=== PATIENT | male | born 1965 | race Caucasian/White ===

== ENCOUNTER 2016-07-21 13:37 | Inpatient (IN) | payer OTHER ==
[2016-07-21] MEDS ORDERED: FOLIC ACID INJ 1 MG, THIAMINE INJ 100 MG, MAGNESIUM SULFATE 2 GM, MULTIVITAMIN 10 ML in... IV STA ×5 (14:48)
[2016-07-21] MEDS ORDERED: LORazepam 2 MG/ML SYRINGE IVP STA (14:59)
[2016-07-21] MEDS ORDERED: LORazepam 2 MG/ML SYRINGE IM STA (15:14)
[2016-07-21] MEDS ORDERED: ONDANSETRON ODT 4 MG TABLET TL STA (15:14)
--- NOTE | 2016-07-21 15:18 | ED Physician Documentation ---
History of Present Illness - Stated complaint Stated Complaint: FEELING FAINT - Chief complaint Chief Complaint: General - Additonal information Additional information: hx from pt 51 male heavy drinker - a fifth vodka per day last drink 07/16 to ER with withdrawal - shakes, feels faint, nauseated no seizure no hallucination 2 prior EtOH withdrawal able to be managed as an outpt with oral meds has not been able to eat or drink - feels he is dehydrated Review of Systems Constitutional: denies: Fever Cardiac: denies: Chest pain / pressure, Palpitations Respiratory: denies: Dyspnea, Cough GI: reports: Nausea. denies: Abdominal Pain Neurologic: reports: Generalized weakness, Near syncope Endocrine: denies: Easy bruising / bleeding Immunocompromised: denies: Immunocompromised PD PAST MEDICAL HISTORY - Past Medical History Past Medical History: Yes Cardiovascular: Hypertension Psych: Post traumatic stress disorder Other Past Medical History: neuropathy - Past Surgical History Past Surgical History: Yes - Present Medications Home Medications: Ambulatory Orders Medication Instructions Recorded Confirmed Gabapentin 300 mg PO TID 07/21/16 07/21/16 Lisinopril 10 mg PO DAILY 07/21/16 07/21/16 Ondansetron Odt [Zofran] 4 mg TL Q6H PRN #10 tablet 07/21/16 QUEtiapine [SEROquel] 200 mg PO DAILY 07/21/16 07/21/16 Sertraline [Zoloft] 200 mg PO DAILY 07/21/16 07/21/16 chlordiazePOXIDE [Librium] 25 mg PO DAILY PRN #9 capsule 07/21/16 - Allergies Allergies/Adverse Reactions: Allergies Allergy/AdvReac Type Severity Reaction Status Date / Time No Known Drug Allergies Allergy Verified 07/21/16 13:49 - Social History Does the pt smoke?: No Smoking Status: Never smoker Does the pt drink ETOH?: Yes ETOH Use: Liquor Does the pt have substance abuse?: Yes Substance Use and Type: Marijuana PD ED PE NORMAL - Vitals Vital signs reviewed: Yes - General General: Alert and oriented X 3 - HEENT HEENT: PERRL - Cardiac Cardiac: RRR - Respiratory Respiratory: No respiratory distress - Abdomen Abdomen: Soft, Non tender - Derm Derm: Normal color - Neuro Neuro: Alert and oriented X 3 Results - Vitals Vitals: Vital Signs - 24 hr 07/21/16 07/21/16 07/21/16 13:47 14:42 17:03 Temperature 35.5 C L Heart Rate 71 96 82 Respiratory 24 18 18 Rate Blood Pressure 101/70 128/78 128/86 H O2 Saturation 97 96 97 Oxygen O2 Source Room air - EKG (time done) 1526 Rate: Rate (enter#) (102) Rhythm: Sinus tachycardia, Other (severe aritcat from tremors but appears sinus tach) Intervals: Other (ST segment elev concave up with J point nothcing c/w repol, tall wide T waves diffusely, no TWI no Q waves) - Labs Labs: Laboratory Tests 07/21/16 07/21/16 07/21/16 16:10 16:10 16:10 WBC 17.8 H RBC 4.95 Hgb 16.4 Hct 46.8 MCV 94.5 H MCH 33.2 H MCHC 35.1 RDW 14.0 Plt Count 250 MPV 8.1 Neut # 14.6 H Lymph # 0.6 L [place] # 2.5 H Eos # 0.0 Baso # 0.0 Absolute Nucleated RBC 0.00 Nucleated RBCs 0.0 Manual Slide Review Indicated WBC Morphology NORMAL APPEARANCE Platelet Estimate NORMAL (130-450,000) Platelet Morphology NORMAL APPEARANCE RBC Morph Micro Appear 1+ ANISOCYTOSIS PT INR Sodium 127 L Potassium 2.1 L* Chloride 64 L* Carbon Dioxide 30 Anion Gap 33.0 H BUN 68 H Creatinine 2.8 H Estimated GFR (MDRD) 24 L Glucose 142 H Glycated Hemoglobin Estim Average Glucose Calcium 9.1 Phosphorus Magnesium Total Bilirubin 2.4 H AST 39 ALT 22 Alkaline Phosphatase 84 Troponin I 0.09 Total Protein 9.4 H Albumin 4.7 Globulin 4.7 H Albumin/Globulin Ratio 1.0 Lipase 39 Vitamin B12 TSH Free T4 Ethyl Alcohol < 5.0 07/21/16 07/21/16 07/21/16 16:10 16:10 16:10 WBC RBC Hgb Hct MCV MCH MCHC RDW Plt Count MPV Neut # Lymph # [place] # Eos # Baso # Absolute Nucleated RBC Nucleated RBCs Manual Slide Review WBC Morphology Platelet Estimate Platelet Morphology RBC Morph Micro Appear PT 12.5 INR 1.1 Sodium Potassium Chloride Carbon Dioxide Anion Gap BUN Creatinine Estimated GFR (MDRD) Glucose Glycated Hemoglobin 4.9 Estim Average Glucose 94 Calcium Phosphorus 3.4 Magnesium 2.3 Total Bilirubin AST ALT Alkaline Phosphatase Troponin I Total Protein Albumin Globulin Albumin/Globulin Ratio Lipase Vitamin B12 TSH Free T4 Ethyl Alcohol 07/21/16 16:10 WBC RBC Hgb Hct MCV MCH MCHC RDW Plt Count MPV Neut # Lymph # [place] # Eos # Baso # Absolute Nucleated RBC Nucleated RBCs Manual Slide Review WBC Morphology Platelet Estimate Platelet Morphology RBC Morph Micro Appear PT INR Sodium Potassium Chloride Carbon Dioxide Anion Gap BUN Creatinine Estimated GFR (MDRD) Glucose Glycated Hemoglobin Estim Average Glucose Calcium Phosphorus Magnesium Total Bilirubin AST ALT Alkaline Phosphatase Troponin I Total Protein Albumin Globulin Albumin/Globulin Ratio Lipase Vitamin B12 341 TSH 0.99 Free T4 1.91 H Ethyl Alcohol PD MEDICAL DECISION MAKING - ED course ED course: EtOH withdrawal not DTs or seizures but also profoundly dehydrated with abn lytes will need admit bili noted - pt has no abd pain - doubt acute miguel - would recheck with AM labs though - if not improving consider [facility] - [facility] is after 6PM and care management not answering phone - but I spoke to the pt and he advises me that he has Service Members Choice and does not need to have permission from [facility] to be [facility] to other [facility] - [facility] and spoke with Supervisor Painting of the Day named Keanu who advises that the [facility] has no [facility] at this times , but also states he does not have the authority to authorize the pt to be admitted to [facility], so I asked who would have that authority and am advised by Keanu that there is no one available [facility] with the authority to approve the pt to be admitted here - but that pt can not be transferred to the [facility] today either because there are no med surg beds - so will admit to [facility] for tonight because the pt needs medical care - cuca Colby aware and present to assist with the above discussions and he called and spoke to Keanu too with the same results Departure - Departure Disposition: 66 [facility] DC/Xfer Clinical Impression: Dehydration, Acute renal insufficiency, Hypokalemia Alcohol withdrawal Qualifiers: Complication of substance-induced condition: uncomplicated Qualified Code(s): F10.230 - Alcohol dependence with withdrawal, uncomplicated Condition: Good
[2016-07-21] MEDS ORDERED: LORazepam 2 MG/ML SYRINGE ONE (15:39)
[2016-07-21] MEDS ORDERED: ONDANSETRON ODT 4 MG TABLET ONE (15:40)
[2016-07-21 16:13] LABS: BASOPHILS % (AUTO) 0.2 %; EOSINOPHILS % (AUTO) 0.1 %; HCT - HEMATOCRIT 46.8 % (42.0-52.0); HGB - HEMOGLOBIN 16.4 g/dL (14.0-18.0); LYMPHOCYTES # (AUTO) 0.6 10^3/uL (1.5-3.5); LYMPHOCYTES % (AUTO) 3.3 %; MEAN CORPUSCULAR HEMOGLOBIN 33.2 pg (27.0-31.0); MEAN CORPUSCULAR HGB CONC 35.1 g/dL (32.0-36.0); MEAN CORPUSCULAR VOLUME 94.5 fL (80.0-94.0); MEAN PLATELET VOLUME 8.1 fL (7.4-11.4); MONOCYTES # (AUTO) 2.5 10^3/uL (0.0-1.0); MONOCYTES % (AUTO) 14.3 %; NEUTROPHILS # (AUTO) 14.6 10^3/uL (1.5-6.6); NEUTROPHILS % (AUTO) 82.1 %; RED BLOOD COUNT 4.95 10^6/uL (4.70-6.10); UNCORRECTED WHITE BLOOD COUNT 17.8 x10^3/uL; WHITE BLOOD COUNT 17.8 x10^3/uL (4.8-10.8)
[2016-07-21 16:31] LABS: BILIRUBIN,TOTAL 2.4 mg/dL (0.2-1.0); BUN - BLOOD UREA NITROGEN 68 mg/dL (6-20); CALCIUM 9.1 mg/dL (8.5-10.3); CARBON DIOXIDE - CO2 30 mmol/L (21-32); CREATININE 2.8 mg/dL (0.6-1.2); GFR - MDRD 24 (>89); GLUCOSE 142 mg/dL (70-100); LIPASE 39 U/L (22-51); SODIUM 127 mmol/L (135-145); TOTAL PROTEIN 9.4 g/dL (6.7-8.2)
[2016-07-21 16:32] LABS: CHLORIDE 64 mmol/L (101-111); POTASSIUM 2.1 mmol/L (3.5-5.0)
[2016-07-21 16:56] LABS: PLATELET ESTIMATE, MANUAL NORMAL (130-450,000) (NORMAL); PLATELET MORPHOLOGY NORMAL APPEARANCE (NORMAL)
[2016-07-21 16:57] LABS: WBC MORPHOLOGY (MULTIPLE) NORMAL APPEARANCE (NORMAL)
[2016-07-21] MEDS ORDERED: SODIUM CHLORIDE 0.9% 2,000 ML IV ONE (17:17)
[2016-07-21] MEDS ORDERED: POTASSIUM CHLORIDE 20 MEQ TABLET PO STA ×2 (17:17→22:21)
[2016-07-21] MEDS ORDERED: POTASSIUM CHLOR 10 MEQ/100 ML 100 ML IV ONE ×2 (17:17→17:40)
[2016-07-21] MEDS ORDERED: POTASSIUM CHLORIDE 20 MEQ TABLET PO ONE (17:41)
[2016-07-21] MEDS ORDERED: LORazepam 2 MG/ML SYRINGE IVP PRN (18:04)
[2016-07-21 18:27] LABS: MAGNESIUM 2.3 mg/dL (1.7-2.8); PHOSPHORUS 3.4 mg/dL (2.5-4.6)
[2016-07-21 18:31] LABS: INR 1.1 (0.8-1.2); PT - PROTHROMBIN TIME 12.5 secs (9.9-12.6)
[2016-07-21 18:35] LABS: HEMOGLOBIN A1C 0.54 g/dL
[2016-07-21] MEDS ORDERED: POTASSIUM CHLOR 20 MEQ/100 ML 100 ML IV SCH (19:00)
[2016-07-21 19:03] LABS: THYROID STIMULATING HORMONE 0.99 uIU/mL (0.34-5.60)
--- NOTE | 2016-07-21 19:21 | HISTORY & PHYSICAL EXAMINATION ---
DATE OF ADMISSION: 07/21/2016 PRIMARY CARE PROVIDER: LOWELL. CHIEF COMPLAINT: Alcohol withdrawal. ADMITTING PROVIDER: Katya Gutierrez APRN. HISTORY OF PRESENT ILLNESS: The patient is a 51-year-old thin male who presented to the ED tonight with a complaint of feeling faint and history of alcoholism who has not had a drink in approximately 4 days. The patient states that he has been a heavy drinker with a fifth of vodka per day for many years. He was on his way today for an appointment for applying for disability with the due to his posttraumatic stress disorder. Prior to going to this appointment he started to feel weak and sick to his stomach. After the appointment and talking with them he started to feel worse. He stated that he became faint and lightheaded. He was unable to eat, drink or keep anything down. He started shaking and started vomiting. He denied having a seizure or hallucinations. He decided to come to the ER for further evaluation of his symptoms. He states that he has had 2 prior alcohol withdrawal sessions, and he was able to be managed as an outpatient with oral medication; however, today after 4 days with no alcohol and feeling so sick, he felt he needed to come to the ER for further intervention. The patient denies fever, chest pain, palpitations, dyspnea, cough, abdominal pain, bruising, bleeding. He admits to lightheadedness, weakness, near syncope, nausea and vomiting. He also stated that he does use marijuana and smoked his last marijuana cigarette approximately a week ago. He denies using cigarettes. The patient was evaluated at bedside in the ER. He appears calm and relaxed, very cool to touch, very pleasant and requesting to be managed for alcohol withdrawal and needing treatment. He agrees to be admitted for further evaluation. While in the ER, he was found to have a potassium level of 2.1, sodium 127, magnesium is pending at this time. White blood cell count of 17.8, probably related to the withdrawal and chloride of 64. He was given aggressive fluid hydration while in the ER by the ER provider. He also received a banana bag. He will be admitted for further evaluation and hydrated and electrolytes replaced. The patient denies having DTs or seizures; however, will be placed on a seizure protocol. ALLERGIES: NO KNOWN DRUG ALLERGIES. HOME MEDICATIONS: 1. Gabapentin. 2. Lisinopril. 3. Seroquel. 4. Zoloft. 5. Librium. 6. Zofran. PAST MEDICAL HISTORY: Includes hypertension, pacemaker placement and posttraumatic stress disorder and neuropathy. PAST SURGICAL HISTORY: Pacemaker placement. FAMILY HISTORY: The patient states both his parents are alive. Father was a drinker as well and also an cash applications analyst. Mother has no medical problems. SOCIAL HISTORY: The patient uses marijuana, smokes fifth of vodka per day, denies cigarette usage. He is on disability from the and is not . REVIEW OF SYSTEMS: Ten systems have been reviewed and are negative with exception as discussed in the HPI prior. he admits to lethargy, nausea, tremors , and denies chest pain, shortness of breath, hematuria and dysuria PHYSICAL EXAMINATION: CONSTITUTIONAL: The patient is alert, no acute distress. EYES: Pupils are equal, round and reactive to light and accommodation. Conjunctivae and sclerae was nonicteric, not injected. ENT: Nares are patent. No nasal discharge. Oropharynx: No masses, exudates or lesions. Mucous membranes were moist. NECK: Supple. No thyromegaly. RESPIRATORY: Breath sounds are clear and equal bilaterally to auscultation. No retractions, nasal flaring, or increased work of breathing. CARDIOVASCULAR: Regular rate and rhythm. S1, S2 noted. No gallops, murmurs or rubs. ABDOMEN: Soft, nontender. Bowel sounds active. No guarding or rebound. No hepatosplenomegaly. SKIN: His skin was cool, dry, intact. No cellulitis or lesions noted. NEUROLOGIC: The patient was alert, GCS 15. Cranial nerves 2-12 grossly intact. Sensory is intact. HEMATOLOGIC: No active bleeding. The patient is hemodynamically stable. LYMPHATICS: No cervical, axillary, supraclavicular lymphadenopathy was noted. GENITOURINARY: No CVA tenderness. No mass palpated. No bladder distention. PSYCHIATRIC: Flat affect, pleasant mood and cooperative. No suicidal ideation. MUSCULOSKELETAL: Extremities: No cyanosis. Pulses are palpable. The patient has full range of motion with upper and lower extremities. Motor is 5/5 bilaterally. VITAL SIGNS: Temperature 35.5, heart rate 71, respirations 18, blood pressure 128/78, pulse oximetry 96% on room air. LABORATORY AND DIAGNOSTICS: I personally reviewed the laboratory and diagnostic data for the medical records for 07/21/2016 results are as follows: 1. EKG shows sinus tachycardia with no T-wave inversion. 2. Chest x-ray pending. LABORATORY DATA: I personally reviewed laboratory data from 07/21/2016 results are as follows: WBC is 17.8, MCV is 94.5, neutrophil percentage 14.6. Sodium 127 , potassium 2.1, chloride 64, carbon dioxide 30, anion gap 33, BUN 68, creatinine 2.8, GFR is 24, glucose 142, total bilirubin 2.4, troponin 0.09, total protein 9.4. Globulin is 4.7, lipase 39. Ethyl alcohol less than 5. ASSESSMENT AND PLAN: 1. Acute alcohol withdrawal with dependence secondary to acute electrolyte imbalances including hypokalemia and hyponatremia. PLAN: Admit the patient to inpatient, replace electrolytes, potassium and sodium and chloride The patient's potassium was 2.1, sodium was 127, chloride was 64. Check magnesium and phosphorus and replace levels. Banana bag IV with normal saline IV hydration. B12 checked. Iron panel checked. We will request amylase and lipase, as well. The patient will need cardiac enzymes trended, however, is not having chest pain at this time, but does have significant low hypokalemia which could result in changes in the EKG and cardiac problems. Continue on CIWA protocol with Ativan and continue home medication of Librium. Social work consult for smoking cessation and outpatient treatment since the patient is requesting help and assist for alcohol withdrawal. 2. Acute on chronic substance abuse, cannabinoids, uncomplicated with acute withdrawal. PLAN: The patient does take gabapentin. Will continue for withdrawal from marijuana. Will provide counseling and education for cessation. Continue on CIWA protocol, as well. Continue to monitor electrolytes. 3. Hypertensive heart disease with chronic substance abuse, marijuana and alcohol abuse with dependence. PLAN: Continue the patient on telemetry monitoring. Will hold lisinopril home medication. Will trend cardiac markers. 4. Acute on chronic generalized anxiety disorder with depression, unspecified. PLAN: Continue the patient on Zoloft and Seroquel. Continue to monitor mental health status and the patient will need social work consult for evaluation for workup for outpatient treatment for alcohol abuse. 5. Posttraumatic stress disorder, chronic with history of involvement in and war. PLAN: Continue to provide social support and outpatient treatment for posttraumatic stress disorder. Continue the patient on Seroquel and Zoloft. 6. DVT prophylaxis with SCDs. Will hold anticoagulation due to liver function testing and potential for bleeding. 7. STATUS: THE PATIENT IS A FULL CODE STATUS. Time spent with patient was 40 minutes for planning and assessment. RISK ASSESSMENT/DISPOSITION: The patient is in full inpatient admission since he will need additional diagnostics and IV medications with high risk for toxicity. Code status was addressed at bedside. plan for at least 2 midnight stay JOB #: [id number] EXT JOB #[facility][id number] [facility]
[2016-07-21] MEDS: ONDANSETRON 4 MG/2 ML VIAL IVP SCH (20:14)
[2016-07-21] MEDS: POTASSIUM CHLOR 10 MEQ/100 ML 100 ML IV SCH ×2 (20:49→22:04)
[2016-07-21] MEDS ORDERED: SODIUM CHLORIDE 0.9% 2,000 ML IV SCH (21:00)
[2016-07-21] MEDS: GABAPENTIN 300 MG CAPSULE PO SCH (22:16)
[2016-07-22] MEDS: LORazepam 0.5 MG TABLET PO PRN ×2 (00:20→07:57)
[2016-07-22] MEDS: POTASSIUM CHLOR 10 MEQ/100 ML 100 ML IV SCH ×9 (02:28→10:14)
[2016-07-22] MEDS: NS W/20 MEQ KCL 1,000 ML IV SCH ×4 (02:28→20:11)
[2016-07-22] MEDS: ONDANSETRON 4 MG/2 ML VIAL IVP SCH ×4 (02:29→17:05)
[2016-07-22] MEDS: GABAPENTIN 300 MG CAPSULE PO SCH ×3 (06:06→21:35)
[2016-07-22 06:25] LABS: BASOPHILS % (AUTO) 0.4 %; EOSINOPHILS % (AUTO) 0.1 %; HCT - HEMATOCRIT 39.3 % (42.0-52.0); HGB - HEMOGLOBIN 13.9 g/dL (14.0-18.0); LYMPHOCYTES # (AUTO) 0.8 10^3/uL (1.5-3.5); LYMPHOCYTES % (AUTO) 7.3 %; MEAN CORPUSCULAR HEMOGLOBIN 33.7 pg (27.0-31.0); MEAN CORPUSCULAR HGB CONC 35.5 g/dL (32.0-36.0); MEAN PLATELET VOLUME 7.4 fL (7.4-11.4); MONOCYTES # (AUTO) 1.5 10^3/uL (0.0-1.0); MONOCYTES % (AUTO) 14.2 %; NEUTROPHILS # (AUTO) 8.3 10^3/uL (1.5-6.6); RED BLOOD COUNT 4.13 10^6/uL (4.70-6.10); UNCORRECTED WHITE BLOOD COUNT 10.6 x10^3/uL; WHITE BLOOD COUNT 10.6 x10^3/uL (4.8-10.8)
[2016-07-22 06:51] LABS: ALBUMIN/GLOBULIN RATIO 1.1 (1.0-2.2); BILIRUBIN,DIRECT 0.4 mg/dL (0.1-0.5); BILIRUBIN,TOTAL 1.8 mg/dL (0.2-1.0); CALCIUM 7.8 mg/dL (8.5-10.3); CREATININE 1.6 mg/dL (0.6-1.2); MAGNESIUM 2.9 mg/dL (1.7-2.8); PHOSPHORUS 3.6 mg/dL (2.5-4.6)
[2016-07-22 06:52] LABS: POTASSIUM 2.4 mmol/L (3.5-5.0)
[2016-07-22] MEDS: POTASSIUM CHLORIDE 20 MEQ TABLET PO SCH ×3 (07:57→17:05)
[2016-07-22] MEDS: SERTRALINE 50 MG TABLET PO SCH (08:19)
[2016-07-22] MEDS: THIAMINE 100 MG TABLET PO SCH (08:19)
[2016-07-22] MEDS ORDERED: QUEtiapine 100 MG TABLET PO SCH ×2 (09:00→21:00)
[2016-07-22] MEDS ORDERED: MULTIVITAMIN 10 ML, THIAMINE INJ 100 MG, FOLIC ACID INJ 1 MG in SODIUM CHLORIDE 0.9% 1,... IV SCH (09:00)
[2016-07-22 09:34] LABS: BILIRUBIN,URINE NEGATIVE (NEGATIVE); UA CHARGE (STRIP ONLY) YES; UR CULTURE IF IND NOT INDICATED
--- NOTE | 2016-07-22 10:29 | PROVIDER PROGRESS NOTE ---
Assessment/Plan - Problem List (1) Electrolyte and fluid disorders not elsewhere classified Assessment/Plan: improving. continue to give IVF for gentle hydration and continue to monitor electrolytes in morning lab draw. continue with regular diet. continue to encourage potassium intake orally of home medication (2) Hypokalemia due to loss of potassium Assessment/Plan: ongoing. continue with IV K riders and oral supplement 20meq until potassium > 3.5. continue on telemetry. continue to monitor with daily labs and repeat potassium level x2 Q6. (3) Alcohol withdrawal Qualifiers: Complication of substance-induced condition: uncomplicated Qualified Code(s ): F10.230 - Alcohol dependence with withdrawal, uncomplicated Assessment/Plan: improving. continue with CIWA protocol and on ativan PRN. continue with seizure precautions. continue to provide education for cessation. social work is providing education and support. continue to monitor ammonia levels and electrolytes. continue on Librium home medication (4) Acute posttraumatic stress disorder following combat Assessment/Plan: stable. continue with zoloft. will hold seroquel since this is making patient more lethargic. social work is working with patient (5) Cannabis abuse, continuous use Assessment/Plan: stable. patient has been counseled on cessation and provided educational materials. He is on ativan and librium for withdrawal. - Current Meds Current Meds: Current Medications Generic Name Dose Route Start Last Admin Trade Name Freq PRN Reason Stop Dose Admin Gabapentin 300 mg 07/21/16 22:00 07/22/16 06:06 Neurontin PO 300 mg TID DIMITRIS Administration Potassium Chloride/Sodium Chloride 1,000 mls @ 125 mls/hr 07/21/16 20:00 05:01 Normal Saline 0.9% W/20 Meq Kcl IV Not Given .Q8H DIMITRIS Lorazepam 0.5 mg 07/21/16 18:04 07/22/16 07:57 Ativan PO 0.5 mg TID PRN Administration Anxiety Ondansetron HCl 4 mg 07/21/16 19:00 07/22/16 06:07 Zofran Inj IVP Not Given Q6HR DIMITRIS Potassium Chloride 40 meq 07/22/16 08:00 07/22/16 07:57 K-Dur PO 40 meq TIDWM DIMITRIS Administration Sertraline HCl 200 mg 07/22/16 09:00 07/22/16 08:19 Zoloft PO 200 mg DAILY DIMITRIS Administration Thiamine HCl 100 mg 07/22/16 09:00 07/22/16 08:19 Vitamin B-1 PO 100 mg DAILY DIMITRIS Administration - Lab Result Lab results reviewed: Yes Fish Bone Diagrams: 07/22/16 06:17 07/22/16 10:52 Other Lab Results: Abnormal Lab Results 07/21/16 07/21/16 07/21/16 07:45 16:10 16:10 WBC 17.8 x10^3/uL H x10^3/uL (4.8-10.8) RBC Hgb Hct MCV 94.5 fL H fL (80.0-94.0) MCH 33.2 pg H pg (27.0-31.0) Neut # 14.6 10^3/uL H 10^3/uL (1.5-6.6) Lymph # 0.6 10^3/uL L 10^3/uL (1.5-3.5) [place] # 2.5 10^3/uL H 10^3/uL (0.0-1.0) APTT Sodium 127 mmol/L L mmol/L (135-145) Potassium 2.1 mmol/L L* mmol/L (3.5-5.0) Chloride 64 mmol/L L* mmol/L (101-111) Carbon Dioxide Anion Gap 33.0 H (6-13) BUN 68 mg/dL H mg/dL (6-20) Creatinine 2.8 mg/dL H mg/dL (0.6-1.2) Estimated GFR (MDRD) 24 L (>89) Glucose 142 mg/dL H mg/dL (70-100) POC Whole Bld Glucose Calcium Magnesium Total Bilirubin 2.4 mg/dL H mg/dL (0.2-1.0) Total Protein 9.4 g/dL H g/dL (6.7-8.2) Globulin 4.7 g/dL H g/dL (2.1-4.2) Lipase Free T4 Urine Ketones 15 mg/dL H mg/dL (NEGATIVE) 07/21/16 07/22/16 07/22/16 16:10 06:17 06:17 WBC RBC 4.13 10^6/uL L 10^6/uL (4.70-6.10) Hgb 13.9 g/dL L g/dL (14.0-18.0) Hct 39.3 % L % (42.0-52.0) MCV 95.0 fL H fL (80.0-94.0) MCH 33.7 pg H pg (27.0-31.0) Neut # 8.3 10^3/uL H 10^3/uL (1.5-6.6) Lymph # 0.8 10^3/uL L 10^3/uL (1.5-3.5) [place] # 1.5 10^3/uL H 10^3/uL (0.0-1.0) APTT Sodium 128 mmol/L L mmol/L (135-145) Potassium 2.4 mmol/L L* mmol/L (3.5-5.0) Chloride 79 mmol/L L* mmol/L (101-111) Carbon Dioxide 34 mmol/L H mmol/L (21-32) Anion Gap 15.0 H (6-13) BUN 54 mg/dL H mg/dL (6-20) Creatinine 1.6 mg/dL H mg/dL (0.6-1.2) Estimated GFR (MDRD) 46 L (>89) Glucose 146 mg/dL H mg/dL (70-100) POC Whole Bld Glucose Calcium 7.8 mg/dL L mg/dL (8.5-10.3) Magnesium 2.9 mg/dL H mg/dL (1.7-2.8) Total Bilirubin 1.8 mg/dL H mg/dL (0.2-1.0) Total Protein Globulin Lipase 56 U/L H U/L (22-51) Free T4 1.91 ng/dL H ng/dL (0.58-1.64) Urine Ketones 07/22/16 07/22/16 06:17 06:17 WBC RBC Hgb Hct MCV MCH Neut # Lymph # [place] # APTT 22.8 secs L secs (24.9-33.3) Sodium Potassium Chloride Carbon Dioxide Anion Gap BUN Creatinine Estimated GFR (MDRD) Glucose POC Whole Bld Glucose 143 mg/dL H mg/dL (70 - 100) Calcium Magnesium Total Bilirubin Total Protein Globulin Lipase Free T4 Urine Ketones - EKG Results EKG Interpreted Independently: No - Additional Planning Condition/Complexity: Improved My Orders: My Active Orders 07/21/16 18:01 Blood Glucose POC [RC] ACHS CIWA - AR Score Card [RC] Routine Q2H Neuro Check [RC] Routine QSHIFT Vital Signs [RC] Q4HR Social Work [CONS] Routine 07/21/16 18:04 LORazepam INJ [Ativan Inj] 1 mg IVP Q8HR PRN LORazepam [Ativan] 0.5 mg PO TID PRN 07/21/16 18:05 UA, MICROSCOPIC & CULT IF [URIN] Routine 07/21/16 19:00 Ondansetron Inj [Zofran Inj] 4 mg IVP Q6HR 07/21/16 22:00 Gabapentin [Neurontin] 300 mg PO TID 07/22/16 09:00 Multivitamin [Infuvite] 10 ml Thiamine Inj [Vitamin B-1 Inj] 100 mg Folic Acid Inj 1 mg Sodium Chloride 0.9% [Normal Saline 0.9%] 1,000 ml IV DAILY Sertraline [Zoloft] 200 mg PO DAILY Thiamine [Vitamin B-1] 100 mg PO DAILY 07/22/16 10:25 CMP [COMPREHENSIVE METABOLIC PANEL] [CHEM] Stat 07/22/16 21:00 QUEtiapine [SEROquel] 100 mg PO QPM QUEtiapine [SEROquel] 75 mg PO QPM 07/23/16 05:00 CBC - COMP BLD CT W/AUTO DIFF [HEME] DAILYLAB CMP [COMPREHENSIVE METABOLIC PANEL] [CHEM] DAILYLAB MAGNESIUM [CHEM] DAILYLAB Consult/Specialty: OT, PT, Other (social work and case management) Plan Discussed with:: Patient, Case Management Time Spent: 31-60 minutes Additional Planning Notes: Patient will require another 24-48 hours inpatient treatment. He is high risk for worsening co morbid conditions and is requiring IV medication with high risk for toxicity and diagnostics daily. code status addressed at bedside Subjective - Subjective Patient Reports: Resting Comfortably, No Complaints (patient is sleeping and no complaints this morning. taking oral medication without difficulty, no seizure activity) Nursing Reports: No Complaints, Other (lethargic and sleeping alot. flat affect today) Objective Vital Signs: Vital Signs - 24 hr 07/21/16 07/21/16 07/21/16 19:11 19:24 23:42 Temperature 36.4 C L 36.7 C 36.4 C L Heart Rate 92 Heart Rate [ 95 90 Monitoring electrodes] Respiratory 24 16 16 Rate Blood Pressure 145/89 H Blood Pressure 149/88 H 130/78 [Right Brachial artery] O2 Saturation 97 97 98 07/22/16 07/22/16 04:20 09:00 Temperature 36.8 C 36.4 C L Heart Rate Heart Rate [ 79 96 Monitoring electrodes] Respiratory 16 22 Rate Blood Pressure Blood Pressure 126/76 122/81 H [Right Brachial artery] O2 Saturation 95 96 Oxygen O2 Source Room air I&O (Last 24 Hrs): Intake and Output Totals x24h 07/20/16 07/21/16 07/22/16 23:59 23:59 23:59 Intake Total 800 Output Total 400 Balance 400 General: Alert, Oriented x3, Cooperative, No acute distress HEENT: PERRLA Neck: Supple, No JVD, No thyromegaly Lymphatic: no adenopathy Neuro: Alert, CN 2-12 Grossly Intact, Oriented Times 3 Cardiovascular: Normal S1, Normal S2, No murmurs Respiratory: No respiratory distress, Breath sounds nml Abdomen: Normal bowel sounds, Soft, No tenderness, No masses Genitourinary: Normal Inspection Rectal: Non-Tender, Stool - Heme NEG Extremities: No clubbing, No cyanosis, No edema, No tenderness/swelling Skin: No rashes, No breakdown, No significant lesion - Results Results: Laboratory Results WBC 10.6 x10^3/uL (4.8-10.8) 07/22/16 06:17 RBC 4.13 10^6/uL (4.70-6.10) L 07/22/16 06:17 Hgb 13.9 g/dL (14.0-18.0) L 07/22/16 06:17 Hct 39.3 % (42.0-52.0) L 07/22/16 06:17 MCV 95.0 fL (80.0-94.0) H 07/22/16 06:17 MCH 33.7 pg (27.0-31.0) H 07/22/16 06:17 MCHC 35.5 g/dL (32.0-36.0) 07/22/16 06:17 RDW 14.0 % (12.0-15.0) 07/22/16 06:17 Plt Count 186 10^3/uL (130-450) 07/22/16 06:17 MPV 7.4 fL (7.4-11.4) 07/22/16 06:17 Neut # 8.3 10^3/uL (1.5-6.6) H 07/22/16 06:17 Lymph # 0.8 10^3/uL (1.5-3.5) L 07/22/16 06:17 [place] # 1.5 10^3/uL (0.0-1.0) H 07/22/16 06:17 Eos # 0.0 10^3/uL (0.0-0.7) 07/22/16 06:17 Baso # 0.0 10^3/uL (0.0-0.1) 07/22/16 06:17 Absolute Nucleated RBC 0.00 x10^3/uL 07/22/16 06:17 Nucleated RBCs 0.0 /100WBC 07/22/16 06:17 Manual Slide Review Indicated 07/21/16 16:10 WBC Morphology NORMAL APPEARANCE (NORMAL) 07/21/16 16:10 Platelet Estimate NORMAL (130-450,000) (NORMAL) 07/21/16 16:10 Platelet Morphology NORMAL APPEARANCE (NORMAL) 07/21/16 16:10 RBC Morph Micro Appear 1+ ANISOCYTOSIS (NORMAL) 07/21/16 16:10 PT 12.5 secs (9.9-12.6) 07/21/16 16:10 INR 1.1 (0.8-1.2) 07/21/16 16:10 APTT 22.8 secs (24.9-33.3) L 07/22/16 06:17 Sodium 128 mmol/L (135-145) L 07/22/16 06:17 Potassium 2.4 mmol/L (3.5-5.0) L* 07/22/16 06:17 Chloride 79 mmol/L (101-111) L* 07/22/16 06:17 Carbon Dioxide 34 mmol/L (21-32) H 07/22/16 06:17 Anion Gap 15.0 (6-13) H 07/22/16 06:17 BUN 54 mg/dL (6-20) H 07/22/16 06:17 Creatinine 1.6 mg/dL (0.6-1.2) H 07/22/16 06:17 Estimated GFR (MDRD) 46 (>89) L 07/22/16 06:17 Glucose 146 mg/dL (70-100) H 07/22/16 06:17 POC Whole Bld Glucose 143 mg/dL (70 - 100) H 07/22/16 06:17 Glycated Hemoglobin 4.9 % (4.6-6.2) 07/21/16 16:10 Estim Average Glucose 94 (70-100) 07/21/16 16:10 Calcium 7.8 mg/dL (8.5-10.3) L 07/22/16 06:17 Phosphorus 3.6 mg/dL (2.5-4.6) 07/22/16 06:17 Magnesium 2.9 mg/dL (1.7-2.8) H 07/22/16 06:17 Total Bilirubin 1.8 mg/dL (0.2-1.0) H 07/22/16 06:17 Direct Bilirubin 0.4 mg/dL (0.1-0.5) 07/22/16 06:17 AST 27 IU/L (10-42) 07/22/16 06:17 ALT 16 IU/L (10-60) 07/22/16 06:17 Alkaline Phosphatase 64 IU/L (42-121) 07/22/16 06:17 Ammonia 27.4 umol/L (7-35) 07/22/16 06:17 Troponin I 0.09 ng/mL (<0.49) 07/21/16 16:10 Total Protein 7.0 g/dL (6.7-8.2) 07/22/16 06:17 Albumin 3.7 g/dL (3.2-5.5) 07/22/16 06:17 Globulin 3.3 g/dL (2.1-4.2) 07/22/16 06:17 Albumin/Globulin Ratio 1.1 (1.0-2.2) 07/22/16 06:17 Amylase 93 U/L (28-100) 07/22/16 06:17 Lipase 56 U/L (22-51) H 07/22/16 06:17 Vitamin B12 341 pg/mL (180-914) 07/21/16 16:10 TSH 0.99 uIU/mL (0.34-5.60) 07/21/16 16:10 Free T4 1.91 ng/dL (0.58-1.64) H 07/21/16 16:10 Free T3 pg/mL 3.39 pg/mL (2.5-3.9) 07/22/16 06:17 Urine Color YELLOW 07/21/16 07:45 Urine Clarity CLEAR (CLEAR) 07/21/16 07:45 Urine pH 6.0 PH (5.0-7.5) 07/21/16 07:45 Ur Specific [place] 1.015 (1.002-1.030) 07/21/16 07:45 Urine Protein NEGATIVE mg/dL (NEGATIVE) 07/21/16 07:45 Urine Glucose (UA) NEGATIVE mg/dL (NEGATIVE) 07/21/16 07:45 Urine Ketones 15 mg/dL (NEGATIVE) H 07/21/16 07:45 Urine Occult Blood TRACE-INTA (NEGATIVE) 07/21/16 07:45 Urine Nitrite NEGATIVE (NEGATIVE) 07/21/16 07:45 Urine Bilirubin NEGATIVE (NEGATIVE) 07/21/16 07:45 Urine Urobilinogen 0.2 (NORMAL) E.U./dL (NORMAL) 07/21/16 07:45 Ur Leukocyte Esterase NEGATIVE (NEGATIVE) 07/21/16 07:45 Ur Microscopic Review NOT INDICATED 07/21/16 07:45 Urine Culture Comments NOT INDICATED 07/21/16 07:45 Ethyl Alcohol < 5.0 mg/dL 07/21/16 16:10
[2016-07-22 11:16] LABS: BILIRUBIN,TOTAL 1.7 mg/dL (0.2-1.0); CALCIUM 7.8 mg/dL (8.5-10.3); CREATININE 1.4 mg/dL (0.6-1.2); POTASSIUM 2.8 mmol/L (3.5-5.0)
[2016-07-22] MEDS: QUEtiapine 100 MG TABLET PO SCH (20:13)
[2016-07-22] MEDS ORDERED: QUEtiapine 25 MG TABLET PO SCH (21:00)
[2016-07-23] MEDS: ONDANSETRON 4 MG/2 ML VIAL IVP SCH ×2 (00:17→05:47)
[2016-07-23] MEDS: NS W/20 MEQ KCL 1,000 ML IV SCH (04:05)
[2016-07-23] MEDS: GABAPENTIN 300 MG CAPSULE PO SCH ×3 (05:47→21:19)
[2016-07-23 06:15] LABS: BASOPHILS % (AUTO) 0.6 %; EOSINOPHILS % (AUTO) 0.5 %; HCT - HEMATOCRIT 37.1 % (42.0-52.0); HGB - HEMOGLOBIN 12.3 g/dL (14.0-18.0); LYMPHOCYTES # (AUTO) 1.1 10^3/uL (1.5-3.5); LYMPHOCYTES % (AUTO) 19.9 %; MEAN CORPUSCULAR HEMOGLOBIN 32.7 pg (27.0-31.0); MEAN CORPUSCULAR HGB CONC 33.2 g/dL (32.0-36.0); MEAN CORPUSCULAR VOLUME 98.3 fL (80.0-94.0); MEAN PLATELET VOLUME 8.3 fL (7.4-11.4); MONOCYTES # (AUTO) 1.3 10^3/uL (0.0-1.0); MONOCYTES % (AUTO) 22.7 %; NEUTROPHILS # (AUTO) 3.1 10^3/uL (1.5-6.6); NEUTROPHILS % (AUTO) 56.3 %; RED BLOOD COUNT 3.78 10^6/uL (4.70-6.10); RED CELL DISTRIBUTION WIDTH 13.7 % (12.0-15.0); UNCORRECTED WHITE BLOOD COUNT 5.5 x10^3/uL; WHITE BLOOD COUNT 5.5 x10^3/uL (4.8-10.8)
[2016-07-23 06:23] LABS: BILIRUBIN,TOTAL 1.2 mg/dL (0.2-1.0); CALCIUM 8.1 mg/dL (8.5-10.3); MAGNESIUM 2.8 mg/dL (1.7-2.8); POTASSIUM 3.7 mmol/L (3.5-5.0); TOTAL PROTEIN 6.1 g/dL (6.7-8.2)
[2016-07-23] MEDS: POTASSIUM CHLORIDE 20 MEQ TABLET PO SCH (08:48)
[2016-07-23] MEDS: THIAMINE 100 MG TABLET PO SCH (08:49)
[2016-07-23] MEDS: SERTRALINE 50 MG TABLET PO SCH (08:49)
[2016-07-23] MEDS ORDERED: CYANOCOBALAMIN 1,000 MCG/ML VIAL IM SCH (10:00)
[2016-07-23] MEDS: MULTIVITAMIN TABLET PO SCH (10:04)
[2016-07-23] MEDS: LISINOPRIL 20 MG TABLET PO SCH (10:04)
--- NOTE | 2016-07-23 10:09 | Discharge Plan ---
Discharge Plan Disposition: 01 Home, Self Care Condition: Good Prescriptions: LORazepam [Ativan] 0.5 mg PO TID PRN #30 tablet PRN Reason: Anxiety Sucralfate [Carafate] 1 gm PO BID #30 ml Gabapentin 1,200 mg PO TID #60 capsule Diet: Regular Activity Restrictions: Activity as Tolerated Shower Restrictions: No Driving Restrictions: No Weight Bearing: Full Weight Instruction Topics: ED Withdrawal Alcohol, PTSD Tx Therapy, PTSD Coping Additional Instructions or Follow Up instructions: Please take all home medication as prescribed and followup with your primary care provider within the first week of discharge. You will need to see outpatient alcohol center and mental health for alcohol abuse. [facility] has a clinic in [facility]. You will need to call them for an appointment. Diet: continue with a regular diet and avoid alcohol. Drink plenty of water throughout the day and avoid alot of soda and caffeine. These can cause dehydration Avoid illegal substances including marajuana and alcohol when trying to recover from substance abuse. You have been given ativan to help with withdrawal symptoms. Take this when needed to avoid the feelings of withdrawal. Please return to the ER if symptoms reoccur or you have any chest pain, shortness of breath or thoughts of hurting yourself or others. Follow-Up Care: Dietitian (Help with diet for alcohol abuse) No Smoking: If you smoke, Please STOP! Call for help.
--- NOTE | 2016-07-23 11:01 | XRAY Report ---
TWO-VIEW NECK SOFT TISSUES: 07/23/2016 CLINICAL INDICATION: Difficulty swallowing. FINDINGS: Frontal and lateral views of the neck soft tissues demonstrate a widely patent trachea. T he hypopharyngeal structures appear unremarkable. No abnormal gas collection is seen in the soft tis sues to suggest abscess. No radiopaque foreign body is seen in the soft tissues. Incidental note is made of a left subclavian dual-chamber pacemaker. IMPRESSION: NORMAL NECK SOFT TISSUES. JOB #: [id number] EXT JOB #:[id number]
[2016-07-23] MEDS: SUCRALFATE 1 GM/10 ML UDC PO SCH ×3 (11:20→21:18)
--- NOTE | 2016-07-23 13:59 | PROVIDER PROGRESS NOTE ---
Assessment/Plan - Problem List (1) Swallowing difficulty Qualifiers: Dysphagia type: esophageal phase Qualified Code(s): R13.14 - Dysphagia, pharyngoesophageal phase Assessment/Plan: acute. probably related to the vomiting from alcohol withdrawal. will evaluate for possible Radha Ward tear since he has history of alcoholism and esophagitis. Xray of soft tissue of neck and throat. carafate oral for swallowing. (2) Electrolyte and fluid disorders not elsewhere classified Assessment/Plan: resolving. patients electrolytes have improved and remain stable. patient is on oral fluids and IVF stopped (3) Hypokalemia due to loss of potassium Assessment/Plan: resolved. continue to monitor potassium level and encourage oral intake (4) Alcohol withdrawal Qualifiers: Complication of substance-induced condition: uncomplicated Qualified Code(s ): F10.230 - Alcohol dependence with withdrawal, uncomplicated Assessment/Plan: resolving. patient is back to baseline and on ativan and librium PO for alcohol withdrawal (5) Acute posttraumatic stress disorder following combat Assessment/Plan: stable. continue on patient with zoloft and trazadone at night. (6) Cannabis abuse, continuous use Assessment/Plan: ongoing. continue to provide counseling and continue with gabapentin home dosage. - Current Meds Current Meds: Current Medications Generic Name Dose Route Start Last Admin Trade Name Freq PRN Reason Stop Dose Admin Gabapentin 300 mg 07/21/16 22:00 07/23/16 13:36 Neurontin PO 300 mg TID DIMITRIS Administration Lisinopril 10 mg 07/23/16 10:00 07/23/16 10:04 Zestril PO 10 mg DAILY DIMITRIS Administration Lorazepam 0.5 mg 07/21/16 18:04 07/22/16 07:57 Ativan PO 0.5 mg TID PRN Administration Anxiety Multivitamins 1 tab 07/23/16 10:00 07/23/16 10:04 Theragran PO 1 tab DAILYWM DIMITRIS Administration Quetiapine Fumarate 100 mg 07/22/16 21:00 07/22/16 20:13 Seroquel PO 100 mg QPM DIMITRIS Administration Sertraline HCl 200 mg 07/22/16 09:00 07/23/16 08:49 Zoloft PO 200 mg DAILY DIMITRIS Administration Sucralfate 1 gm 07/23/16 11:00 07/23/16 11:20 Carafate PO 1 gm 0700,1100,1600,2200 DIMITRIS Administration Thiamine HCl 100 mg 07/22/16 09:00 07/23/16 08:49 Vitamin B-1 PO 100 mg DAILY DIMITRIS Administration - Lab Result Lab results reviewed: Yes Fish Bone Diagrams: 07/23/16 05:48 07/23/16 05:48 Other Lab Results: Abnormal Lab Results 07/21/16 07/21/16 07/21/16 07:45 16:10 16:10 WBC 17.8 x10^3/uL H x10^3/uL (4.8-10.8) RBC Hgb Hct MCV 94.5 fL H fL (80.0-94.0) MCH 33.2 pg H pg (27.0-31.0) Neut # 14.6 10^3/uL H 10^3/uL (1.5-6.6) Lymph # 0.6 10^3/uL L 10^3/uL (1.5-3.5) [place] # 2.5 10^3/uL H 10^3/uL (0.0-1.0) APTT Sodium 127 mmol/L L mmol/L (135-145) Potassium 2.1 mmol/L L* mmol/L (3.5-5.0) Chloride 64 mmol/L L* mmol/L (101-111) Carbon Dioxide Anion Gap 33.0 H (6-13) BUN 68 mg/dL H mg/dL (6-20) Creatinine 2.8 mg/dL H mg/dL (0.6-1.2) Estimated GFR (MDRD) 24 L (>89) Glucose 142 mg/dL H mg/dL (70-100) POC Whole Bld Glucose Calcium Magnesium Total Bilirubin 2.4 mg/dL H mg/dL (0.2-1.0) Total Protein 9.4 g/dL H g/dL (6.7-8.2) Albumin Globulin 4.7 g/dL H g/dL (2.1-4.2) Lipase Free T4 Urine Ketones 15 mg/dL H mg/dL (NEGATIVE) 07/21/16 07/22/16 07/22/16 16:10 06:17 06:17 WBC RBC 4.13 10^6/uL L 10^6/uL (4.70-6.10) Hgb 13.9 g/dL L g/dL (14.0-18.0) Hct 39.3 % L % (42.0-52.0) MCV 95.0 fL H fL (80.0-94.0) MCH 33.7 pg H pg (27.0-31.0) Neut # 8.3 10^3/uL H 10^3/uL (1.5-6.6) Lymph # 0.8 10^3/uL L 10^3/uL (1.5-3.5) [place] # 1.5 10^3/uL H 10^3/uL (0.0-1.0) APTT Sodium 128 mmol/L L mmol/L (135-145) Potassium 2.4 mmol/L L* mmol/L (3.5-5.0) Chloride 79 mmol/L L* mmol/L (101-111) Carbon Dioxide 34 mmol/L H mmol/L (21-32) Anion Gap 15.0 H (6-13) BUN 54 mg/dL H mg/dL (6-20) Creatinine 1.6 mg/dL H mg/dL (0.6-1.2) Estimated GFR (MDRD) 46 L (>89) Glucose 146 mg/dL H mg/dL (70-100) POC Whole Bld Glucose Calcium 7.8 mg/dL L mg/dL (8.5-10.3) Magnesium 2.9 mg/dL H mg/dL (1.7-2.8) Total Bilirubin 1.8 mg/dL H mg/dL (0.2-1.0) Total Protein Albumin Globulin Lipase 56 U/L H U/L (22-51) Free T4 1.91 ng/dL H ng/dL (0.58-1.64) Urine Ketones 07/22/16 07/22/16 07/22/16 06:17 06:17 10:52 WBC RBC Hgb Hct MCV MCH Neut # Lymph # [place] # APTT 22.8 secs L secs (24.9-33.3) Sodium 127 mmol/L L mmol/L (135-145) Potassium 2.8 mmol/L L mmol/L (3.5-5.0) Chloride 81 mmol/L L mmol/L (101-111) Carbon Dioxide 34 mmol/L H mmol/L (21-32) Anion Gap BUN 45 mg/dL H mg/dL (6-20) Creatinine 1.4 mg/dL H mg/dL (0.6-1.2) Estimated GFR (MDRD) 53 L (>89) Glucose 115 mg/dL H mg/dL (70-100) POC Whole Bld Glucose 143 mg/dL H mg/dL (70 - 100) Calcium 7.8 mg/dL L mg/dL (8.5-10.3) Magnesium Total Bilirubin 1.7 mg/dL H mg/dL (0.2-1.0) Total Protein Albumin Globulin Lipase Free T4 Urine Ketones 07/22/16 07/22/16 07/22/16 11:32 16:27 20:57 WBC RBC Hgb Hct MCV MCH Neut # Lymph # [place] # APTT Sodium Potassium Chloride Carbon Dioxide Anion Gap BUN Creatinine Estimated GFR (MDRD) Glucose POC Whole Bld Glucose 124 mg/dL H mg/dL 103 mg/dL H mg/dL 103 mg/dL H mg/dL (70 - 100) (70 - 100) (70 - 100) Calcium Magnesium Total Bilirubin Total Protein Albumin Globulin Lipase Free T4 Urine Ketones 07/23/16 07/23/16 07/23/16 05:48 05:48 07:34 WBC RBC 3.78 10^6/uL L 10^6/uL (4.70-6.10) Hgb 12.3 g/dL L g/dL (14.0-18.0) Hct 37.1 % L % (42.0-52.0) MCV 98.3 fL H fL (80.0-94.0) MCH 32.7 pg H pg (27.0-31.0) Neut # Lymph # 1.1 10^3/uL L 10^3/uL (1.5-3.5) [place] # 1.3 10^3/uL H 10^3/uL (0.0-1.0) APTT Sodium 134 mmol/L L mmol/L (135-145) Potassium Chloride 97 mmol/L L mmol/L (101-111) Carbon Dioxide Anion Gap BUN 24 mg/dL H mg/dL (6-20) Creatinine Estimated GFR (MDRD) 79 L (>89) Glucose 123 mg/dL H mg/dL (70-100) POC Whole Bld Glucose 108 mg/dL H mg/dL (70 - 100) Calcium 8.1 mg/dL L mg/dL (8.5-10.3) Magnesium Total Bilirubin 1.2 mg/dL H mg/dL (0.2-1.0) Total Protein 6.1 g/dL L g/dL (6.7-8.2) Albumin 3.1 g/dL L g/dL (3.2-5.5) Globulin Lipase Free T4 Urine Ketones 07/23/16 10:57 WBC RBC Hgb Hct MCV MCH Neut # Lymph # [place] # APTT Sodium Potassium Chloride Carbon Dioxide Anion Gap BUN Creatinine Estimated GFR (MDRD) Glucose POC Whole Bld Glucose 106 mg/dL H mg/dL (70 - 100) Calcium Magnesium Total Bilirubin Total Protein Albumin Globulin Lipase Free T4 Urine Ketones - EKG Results EKG Interpreted Independently: No - Diagnostic Imaging Results Diagnostic Imaging Results: positive: Prelim report reviewed Diagnostic Imaging Results Comments: Xray of the neck and throat. Impression: negative for tear or varices or esophagitis - Additional Planning Condition/Complexity: Improved My Orders: My Active Orders 07/22/16 21:00 QUEtiapine [SEROquel] 100 mg PO QPM 07/23/16 10:00 Lisinopril [Zestril] 10 mg PO DAILY Multivitamin [Theragran] 1 tab PO DAILYWM 07/23/16 11:00 Sucralfate [Carafate] 1 gm PO 0700,1100,1600,2200 07/23/16 Dinner Soft Mechanical Diet [DIET] Consult/Specialty: Other (social work) Plan Discussed with:: Patient Time Spent: 31-60 minutes (Patient is requesting to stay one more night since he is having some difficulty swallowing. Xray ordered for throat and neck. plan to discharge patient in the morning.) Subjective - Subjective Patient Reports: Feeling Better, Resting Comfortably, No Complaints Nursing Reports: No Complaints, Other (flat affect. patient feels weak and requesting one more night in order to feel up to going to outpatient treatment for alcohol abuse) Objective Vital Signs: Vital Signs - 24 hr 07/22/16 07/22/16 07/23/16 16:45 21:00 00:24 Temperature 36.9 C 36.9 C 36.8 C Heart Rate [ 82 84 79 Brachial] Respiratory 20 18 18 Rate Blood Pressure 105/70 123/72 [Left Brachial artery] Blood Pressure 127/74 [Right Brachial artery] O2 Saturation 97 98 95 07/23/16 07/23/16 07/23/16 05:10 07:35 12:38 Temperature 36.9 C 36.9 C 37 C Heart Rate [ 66 74 70 Brachial] Respiratory 19 18 18 Rate Blood Pressure 149/84 H 133/79 H 128/79 [Left Brachial artery] Blood Pressure [Right Brachial artery] O2 Saturation 98 99 99 Oxygen O2 Source Room air I&O (Last 24 Hrs): Intake and Output Totals x24h 07/21/16 07/22/16 07/23/16 23:59 23:59 23:59 Intake Total 3063 2514 Output Total 1680 1250 Balance 1383 1264 General: Alert, Oriented x3, Cooperative HEENT: Atraumatic, PERRLA Neck: Supple, No JVD, No thyromegaly Lymphatic: no adenopathy Neuro: Alert, CN 2-12 Grossly Intact, Oriented Times 3 Cardiovascular: Regular rate, Normal S1, Normal S2, No murmurs Respiratory: Chest non-tender, No respiratory distress, Breath sounds nml Abdomen: Normal bowel sounds, Soft, No tenderness, No hepatospenomegaly, No masses Rectal: Stool - Heme NEG Extremities: No clubbing, No cyanosis, No edema, Normal pulses, No tenderness/ swelling Skin: No rashes, No breakdown, No significant lesion - Results Results: Laboratory Results WBC 5.5 x10^3/uL (4.8-10.8) 07/23/16 05:48 RBC 3.78 10^6/uL (4.70-6.10) L 07/23/16 05:48 Hgb 12.3 g/dL (14.0-18.0) L 07/23/16 05:48 Hct 37.1 % (42.0-52.0) L 07/23/16 05:48 MCV 98.3 fL (80.0-94.0) H 07/23/16 05:48 MCH 32.7 pg (27.0-31.0) H 07/23/16 05:48 MCHC 33.2 g/dL (32.0-36.0) 07/23/16 05:48 RDW 13.7 % (12.0-15.0) 07/23/16 05:48 Plt Count 164 10^3/uL (130-450) 07/23/16 05:48 MPV 8.3 fL (7.4-11.4) 07/23/16 05:48 Neut # 3.1 10^3/uL (1.5-6.6) 07/23/16 05:48 Lymph # 1.1 10^3/uL (1.5-3.5) L 07/23/16 05:48 [place] # 1.3 10^3/uL (0.0-1.0) H 07/23/16 05:48 Eos # 0.0 10^3/uL (0.0-0.7) 07/23/16 05:48 Baso # 0.0 10^3/uL (0.0-0.1) 07/23/16 05:48 Absolute Nucleated RBC 0.00 x10^3/uL 07/23/16 05:48 Nucleated RBCs 0.0 /100WBC 07/23/16 05:48 Manual Slide Review Indicated 07/21/16 16:10 WBC Morphology NORMAL APPEARANCE (NORMAL) 07/21/16 16:10 Platelet Estimate NORMAL (130-450,000) (NORMAL) 07/21/16 16:10 Platelet Morphology NORMAL APPEARANCE (NORMAL) 07/21/16 16:10 RBC Morph Micro Appear 1+ ANISOCYTOSIS (NORMAL) 07/21/16 16:10 PT 12.5 secs (9.9-12.6) 07/21/16 16:10 INR 1.1 (0.8-1.2) 07/21/16 16:10 APTT 22.8 secs (24.9-33.3) L 07/22/16 06:17 Sodium 134 mmol/L (135-145) L 07/23/16 05:48 Potassium 3.7 mmol/L (3.5-5.0) 07/23/16 05:48 Chloride 97 mmol/L (101-111) L 07/23/16 05:48 Carbon Dioxide 31 mmol/L (21-32) 07/23/16 05:48 Anion Gap 6.0 (6-13) 07/23/16 05:48 BUN 24 mg/dL (6-20) H 07/23/16 05:48 Creatinine 1.0 mg/dL (0.6-1.2) 07/23/16 05:48 Estimated GFR (MDRD) 79 (>89) L 07/23/16 05:48 Glucose 123 mg/dL (70-100) H 07/23/16 05:48 POC Whole Bld Glucose 106 mg/dL (70 - 100) H 07/23/16 10:57 Glycated Hemoglobin 4.9 % (4.6-6.2) 07/21/16 16:10 Estim Average Glucose 94 (70-100) 07/21/16 16:10 Calcium 8.1 mg/dL (8.5-10.3) L 07/23/16 05:48 Phosphorus 3.6 mg/dL (2.5-4.6) 07/22/16 06:17 Magnesium 2.8 mg/dL (1.7-2.8) 07/23/16 05:48 Total Bilirubin 1.2 mg/dL (0.2-1.0) H 07/23/16 05:48 Direct Bilirubin 0.4 mg/dL (0.1-0.5) 07/22/16 06:17 AST 23 IU/L (10-42) 07/23/16 05:48 ALT 14 IU/L (10-60) 07/23/16 05:48 Alkaline Phosphatase 54 IU/L (42-121) 07/23/16 05:48 Ammonia 27.4 umol/L (7-35) 07/22/16 06:17 Troponin I 0.09 ng/mL (<0.49) 07/21/16 16:10 Total Protein 6.1 g/dL (6.7-8.2) L 07/23/16 05:48 Albumin 3.1 g/dL (3.2-5.5) L 07/23/16 05:48 Globulin 3.0 g/dL (2.1-4.2) 07/23/16 05:48 Albumin/Globulin Ratio 1.0 (1.0-2.2) 07/23/16 05:48 Amylase 93 U/L (28-100) 07/22/16 06:17 Lipase 56 U/L (22-51) H 07/22/16 06:17 Vitamin B12 341 pg/mL (180-914) 07/21/16 16:10 TSH 0.99 uIU/mL (0.34-5.60) 07/21/16 16:10 Free T4 1.91 ng/dL (0.58-1.64) H 07/21/16 16:10 Free T3 pg/mL 3.39 pg/mL (2.5-3.9) 07/22/16 06:17 Urine Color YELLOW 07/21/16 07:45 Urine Clarity CLEAR (CLEAR) 07/21/16 07:45 Urine pH 6.0 PH (5.0-7.5) 07/21/16 07:45 Ur Specific [place] 1.015 (1.002-1.030) 07/21/16 07:45 Urine Protein NEGATIVE mg/dL (NEGATIVE) 07/21/16 07:45 Urine Glucose (UA) NEGATIVE mg/dL (NEGATIVE) 07/21/16 07:45 Urine Ketones 15 mg/dL (NEGATIVE) H 07/21/16 07:45 Urine Occult Blood TRACE-INTA (NEGATIVE) 07/21/16 07:45 Urine Nitrite NEGATIVE (NEGATIVE) 07/21/16 07:45 Urine Bilirubin NEGATIVE (NEGATIVE) 07/21/16 07:45 Urine Urobilinogen 0.2 (NORMAL) E.U./dL (NORMAL) 07/21/16 07:45 Ur Leukocyte Esterase NEGATIVE (NEGATIVE) 07/21/16 07:45 Ur Microscopic Review NOT INDICATED 07/21/16 07:45 Urine Culture Comments NOT INDICATED 07/21/16 07:45 Ethyl Alcohol < 5.0 mg/dL 07/21/16 16:10 - Procedures Procedures: Xray of neck soft tissue and throat was negative for acute process of esophagitis. No varices noted.
[2016-07-23] MEDS: QUEtiapine 100 MG TABLET PO SCH (21:18)
[2016-07-24] MEDS: SUCRALFATE 1 GM/10 ML UDC PO SCH ×2 (05:33→12:58)
[2016-07-24] MEDS: GABAPENTIN 300 MG CAPSULE PO SCH (05:33)
--- NOTE | 2016-07-24 08:27 | DISCHARGE SUMMARY ---
DATE OF ADMISSION: 07/21/2016 DATE OF DISCHARGE: 07/24/2016 CHIEF COMPLAINT: Alcohol withdrawal and feeling faint. ADMITTING DIAGNOSIS: Acute alcohol withdrawal with electrolyte imbalance. DISCHARGE DIAGNOSES: 1. Acute hypokalemia and hyponatremia secondary to electrolyte imbalance from substance abuse, alcohol and marijuana. 2. Post-traumatic stress disorder, chronic from acts of war. 3. Hypertensive heart disease with substance abuse, alcohol, with dependence. 4. Chronic peripheral neuropathy. 5. Cannabis abuse with dependence. 6. Difficulty in swallowing, unspecified. PROCEDURES: Soft tissue neck x-ray, impression shows normal neck soft tissues. CONSULTATIONS: With social work for alcohol abuse and education. HOSPITAL COURSE AND TREATMENT: The patient is a 51-year-old male who presented through the ED with a complaint of feeling faint and nauseous, shaking and having his last drink approximately 5 days prior. The patient had no seizure activity, no hallucination. He had 2 prior alcohol withdrawal events , but he was able to manage them as an outpatient with oral medications including Ativan and Librium. The patient states he has not been able to eat for several days and felt like he was dehydrated. The patient was evaluated in the ER and was found to have significant electrolyte imbalances including severe hypokalemia and hyponatremia. Potassium at the time of presentation to the ER was 2.1 and sodium at the time of presentation to the ER was 127. The patient was then admitted. He received IV hydration, lactated Ringer's of normal saline to help replete his electrolytes. He had mild acute kidney injury with a BUN at 68 at time of admission. On the day of discharge, it improved to 24. His creatinine at the time of admission was 2.8, at the time of discharge was 1.0. The patient's magnesium at the time of admission remained stable at 2.3. His chloride level at the time of admission was 64 and was 97 at the day of discharge. His sodium was 134 the time of discharge and creatinine was 1.01 the time of discharge and BUN was 24 at the time of discharge. Medications that the patient was taking during admission was thiamin, Multivitamin, gabapentin, Ativan, Zoloft, Seroquel, Trazodone and prazosin. His lisinopril was held because of the acute kidney injury. He was given Carafate since the patient had 1 day of difficulty swallowing, probably due to the emesis over the several days prior to admission that he had from withdrawal symptoms. The patient was also given 2 banana bags and then started on a multivitamin. He took Ativan IV and then was transitioned to oral Ativan for withdrawal symptoms. He remained on Seroquel and Zoloft for his posttraumatic stress disorder, trazodone was given at night, which is a home medication to help with sleep. His gabapentin was given for the neuropathy along with marijuana withdrawal. The patient was counseled by social work for alcohol withdrawal and addiction. The patient expressed the desire to go to an out treatment center once discharged. The day prior to discharge, the patient requested 1 additional day stay to be able to get his affairs in order so that once he did discharge, he would be able to go to the outpatient clinic in [place] for substance abuse. Since the patient is a [facility] and still under their care, he was able to [facility] in [place] for followup treatment. On the day of discharge, the patient's vital signs are stable with a temperature 36.7, heart rate 64, blood pressure 122/75, respirations 16, oxygen saturation 99% on room air. The patient was given a prescription for Carafate, Ativan and gabapentin and instructed to followup with his primary care for additional prescriptions and instructed to stay on all home medications that have been prescribed earlier to him. The patient was given significant information regarding substance abuse and alcohol abuse to help with the transition to the outpatient treatment center. The patient was to taken himself to [place] on his own accord once discharged from inpatient status. PHYSICAL EXAMINATION: CONSTITUTIONAL: The patient is alert, in no acute distress. EYES: Pupils equal, round and react to light and accommodation. Conjunctivae and sclerae was nonicteric, not injected. ENT: Nares patent. No nasal discharge. Oropharynx. No masses, exudates or lesions. Mucous membranes are moist. NECK: NECK: Supple. No thyromegaly. RESPIRATORY: Breath sounds are clear and equal bilaterally to auscultation and percussion, no retractions, nasal flaring, increased work of breathing. GASTROINTESTINAL: Abdomen is soft, nontender, bowel sounds present in 4 quadrants. No guarding or rebound. PSYCHIATRIC: Behavior is appropriate, no suicidal ideation. Pleasant mood. Normal affect. SKIN: SKIN: Warm, dry, intact. Normal turgor. No evidence of rash, lesions, or cellulitis. HEMATOLOGIC: No active bleeding. The patient is hemodynamically stable. LYMPHATICS: No cervical, axillary, supraclavicular lymphadenopathy is noted. GENITOURINARY: No CVA tenderness. No masses palpated. No bladder distention. MUSCULOSKELETAL: Full range of motion with upper and lower extremities. No cyanosis. No edema noted to lower extremities. NEUROLOGIC: The patient is alert. Cranial nerves 2-12 grossly intact. Sensory is intact. MEDICATIONS AT TIME OF DISCHARGE: 1. Trazodone 50 mg tablet. 2. Lisinopril 10 mg. 3. Prazosin 4 mg p.o. daily. 4. Seroquel 100 mg p.o. b.i.d. 5. Zoloft 150 mg p.o. daily. 6. Ativan 0.5 mg p.o. t.i.d. p.r.n. 7. Carafate 40 mg capsules 1 gram p.o. b.i.d. 8. Gabapentin 1200 mg p.o. t.i.d. 9. Theragran 1 tablet daily with meals. 10. Thiamine 100 mg p.o. daily. INSTRUCTIONS FOR FOLLOWUP AT DISCHARGE: 1. Diet: The patient understands he is to follow a heart healthy diet, avoid all alcohol and any illegal substances. 2. The patient understands he is to followup with outpatient treatment center on his own accord in [place] with the [place]. 3. The patient is also to drink plenty of water. Avoid sodas and caffeine since they can dehydrate him. 4. Exercise: The patient is to continue all activities of daily living including exercise several times a week at least 20 minutes a day. This will help with not only his heart, but also with his mood since he does have a depressive disorder. 5. The patient understands he is also to get sleep and was counseled on this, 7- 8 hours at night is recommended. He does take trazodone, which he is to continue on for help with insomnia and sleep. FOLLOWUP: The patient is to followup with primary care provider within 1 week of discharge. [facility] [place] [facility] and [facility] and he is to followup with primary care for additional information. The patient verbally understood all the instructions that were given to him. He was given prescriptions and education by nursing and hospitalist staff. He is to take himself to the outpatient clinic for treatment for substance abuse. The patient was stable at the time of discharge. Time spent on time of discharge for education planning and assessment was 45 minutes. The patient was to remain a FULL CODE STATUS at time of discharge. JOB #: [id number] EXT JOB #:[id number] BIPIN
[2016-07-24] MEDS: LISINOPRIL 20 MG TABLET PO SCH (10:47)
[2016-07-24] MEDS: SERTRALINE 50 MG TABLET PO SCH (10:47)
[2016-07-24] MEDS: THIAMINE 100 MG TABLET PO SCH (10:48)
[2016-07-24] MEDS: MULTIVITAMIN TABLET PO SCH (10:48)
[2016-07-24 12:13] VITALS: BP 133/77
== END 2016-07-24 13:00 | disposition home or self-care (01) | DRG 897 ==
LOC: ED 13:37 → MS 17:59
PROVIDERS: ADMIT Nurse Practitioner; ATTEND Nurse Practitioner
DX: F10.239 Alcohol dependence with withdrawal, unspecified (principal); E87.1 Hypo-osmolality and hyponatremia; N17.9 Acute kidney failure, unspecified; E87.6 Hypokalemia; F12.288 Cannabis dependence with other cannabis-induced disorder; F43.10 Post-traumatic stress disorder, unspecified; F41.8 Other specified anxiety disorders; I11.9 Hypertensive heart disease without heart failure; G62.9 Polyneuropathy, unspecified; R13.10 Dysphagia, unspecified; Y90.0 Blood alcohol level of less than 20 mg/100 ml; Z79.899 Other long term (current) drug therapy; Z95.0 Presence of cardiac pacemaker
CPT/HCPCS: 36415; 70360; 80051; 80053; 80076; 80320; 81001; 81003; 82140; 82150; 82248; 82607; 83036; 83690; 83735; 84100; 84425; 84439; 84443; 84481; 84484; 85025; 85610; 85730; 87086; 93005; 93010; 96365; 96372; 96375; 99283; 99284

== ENCOUNTER 2016-12-10 10:23 | Outpatient (CLI) | payer OTHER | END 2016-12-10 10:24 | disposition home or self-care (01) | LOC: LAB 10:23 | DX: Z01.89 Encounter for other specified special examinations (principal) | CPT/HCPCS: 36415 ==

== ENCOUNTER 2018-05-22 04:56 | Outpatient (CLI) | payer OTHER | END 2018-05-22 04:57 | disposition critical access hospital (66) | LOC: EMS 04:56 | PROVIDERS: ATTEND Surgery | DX: R11.2 Nausea with vomiting, unspecified (principal); R19.7 Diarrhea, unspecified; M23.92 Unspecified internal derangement of left knee; M23.91 Unspecified internal derangement of right knee | CPT/HCPCS: A0425; A0427 ==

== ENCOUNTER 2018-05-22 05:12 | Emergency (ER) | payer OTHER ==
--- NOTE | 2018-05-22 05:23 | ED Physician Documentation ---
History of Present Illness - Stated complaint Stated Complaint: LEG PAIN - Chief complaint Chief Complaint: General - History obtained from History obtained from: Patient, EMS - History of Present Illness Timing: Prior to arrival Pain level max: 5 Pain level now: 0 Improved by: significant improvement in leg cramping/stiffness after IV versed 5mg given by medics; also given IV zofran which improved the nausea Worsened by: no exacerbating factors - Additonal information Additional information: Patient drinks vodka on daily basis for past several weeks. He developed increasing nausea and abdominal discomfort over past several days to the point where he couldn't tolerate the alcohol for the past 2 days; he feels he is having alcohol withdrawal as a result, with tremulousness, insomnia, nausea and vomiting. Tonight his legs "locked up" (per patient), with spasms that prevented him from being able to stand or ambulate and thus his roommate called 911. Admitted to [facility] in 2017 for similar symptoms. Review of Systems Constitutional: reports: Sweats. denies: Fever, Chills Cardiac: reports: Reviewed and negative Respiratory: reports: Reviewed and negative GI: reports: Abdominal Pain (epigastric burning), Nausea, Vomiting Musculoskeletal: reports: Extremity pain. denies: Neck pain, Back pain, Extremity swelling Neurologic: reports: Reviewed and negative PD PAST MEDICAL HISTORY - Past Medical History Cardiovascular: Hypertension Respiratory: None Endocrine/Autoimmune: None GI: None : None HEENT: None Psych: Post traumatic stress disorder Musculoskeletal: None Derm: None - Past Surgical History Past Surgical History: Yes - Present Medications Home Medications: Ambulatory Orders Medication Instructions Recorded Confirmed Lisinopril 10 mg PO DAILY 07/21/16 07/23/16 QUEtiapine [SEROquel] 100 mg PO BID 07/21/16 07/23/16 Sertraline [Zoloft] 150 mg PO DAILY 07/21/16 07/23/16 Prazosin HCl 4 mg PO QPM 07/23/16 07/23/16 traZODone [Desyrel] 50 - 100 mg PO QPM PRN 07/23/16 07/23/16 Gabapentin 1,200 mg PO TID #60 capsule 07/24/16 LORazepam [Ativan] 0.5 mg PO TID PRN #30 tablet 07/24/16 Multivitamin [Theragran] 1 tab PO DAILYWM tablet 07/24/16 Sucralfate [Carafate] 1 gm PO BID #30 ml 07/24/16 Thiamine [Vitamin B-1] 100 mg PO DAILY tablet 07/24/16 LORazepam [Ativan] 1 mg PO TID PRN #20 tablet 05/22/18 LORazepam [Ativan] 1 mg PO TID PRN #20 tablet 05/22/18 Ondansetron Odt [Zofran] 4 mg TL Q6H PRN #10 tablet 05/22/18 Ondansetron Odt [Zofran] 4 mg TL Q6H PRN #14 tablet 05/22/18 Potassium Phosphate,Monobasic 500 mg PO BID #14 tablet.aylin 05/22/18 [K-Phos Original] cloNIDine [Catapres] 0.1 mg PO BID #14 tablet 05/22/18 - Allergies Allergies/Adverse Reactions: Allergies Allergy/AdvReac Type Severity Reaction Status Date / Time No Known Drug Allergies Allergy Verified 05/22/18 05:16 - Social History Does the pt smoke?: No Smoking Status: Never smoker Does the pt drink ETOH?: Yes Does the pt have substance abuse?: Yes PD ED PE NORMAL - Vitals Vital signs reviewed: Yes - General General: Alert and oriented X 3, No acute distress, Well developed/nourished - HEENT HEENT: Atraumatic, PERRL, EOMI, Other (tacky/pasty mucous membranes) - Neck Neck: Supple, no meningeal sign - Cardiac Cardiac: RRR, No murmur - Respiratory Respiratory: No respiratory distress, Clear bilaterally - Abdomen Abdomen: Soft, Non tender, Non distended - Derm Derm: Normal color, Warm and dry - Extremities Extremities: No tenderness to palpate, No edema, No calf tenderness / cord - Neuro Neuro: Alert and oriented X 3, resident in diagnostic radiology 2-12 intact, No motor deficit, No sensory deficit, Normal speech Eye Opening: Spontaneous Motor: Obeys Commands Verbal: Oriented GCS Score: 15 Results - Vitals Vitals: Vital Signs - 24 hr 05/22/18 05/22/18 05/22/18 05:16 05:20 07:20 Temperature 37.0 C 37.0 C Heart Rate 101 H 106 H 82 Respiratory 18 18 20 Rate Blood Pressure 173/108 H 173/108 H 181/77 H O2 Saturation 97 97 100 03/31/19 03/31/19 03/31/19 08:20 08:53 10:00 Temperature Heart Rate 86 81 88 Respiratory 16 14 19 Rate Blood Pressure 138/96 H 140/89 H 187/116 H O2 Saturation 100 98 100 05/22/18 05/22/18 05/22/18 10:30 12:08 13:35 Temperature 36.5 C 36.4 C L Heart Rate 96 91 94 Respiratory 18 21 14 Rate Blood Pressure 174/86 H 136/79 H 160/98 H O2 Saturation 98 98 100 Oxygen O2 Source Room air - Labs Labs: Laboratory Tests 05/22/18 05/22/18 05/22/18 06:08 06:08 10:49 WBC 18.2 H RBC 4.77 Hgb 15.7 Hct 45.5 MCV 95.4 H MCH 32.9 H MCHC 34.5 RDW 13.1 Plt Count 236 MPV 8.0 Neut # (Auto) 16.3 H Lymph # (Auto) 0.7 L [place] # (Auto) 1.1 H Eos # (Auto) 0.0 Baso # (Auto) 0.1 Absolute Nucleated RBC 0.01 Nucleated RBC % 0.0 Sodium 139 Potassium 3.0 L Chloride 95 L Carbon Dioxide 29 Anion Gap 15.0 H BUN 23 H Creatinine 1.3 H Estimated GFR (MDRD) 58 L Glucose 174 H Calcium 9.1 Phosphorus 1.6 L Magnesium 2.2 Total Bilirubin 2.1 H AST 31 ALT 26 Alkaline Phosphatase 116 Total Protein 8.1 Albumin 4.2 Globulin 3.9 Albumin/Globulin Ratio 1.1 Lipase 23 Urine Color DARK YELLOW Urine Clarity CLEAR Urine pH 7.5 Ur Specific [place] 1.020 Urine Protein TRACE Urine Glucose (UA) NEGATIVE Urine Ketones 40 H Urine Occult Blood NEGATIVE Urine Nitrite NEGATIVE Urine Bilirubin NEGATIVE Urine Urobilinogen 0.2 (NORMAL) Ur Leukocyte Esterase NEGATIVE Ur Microscopic Review NOT INDICATED Urine Culture Comments NOT INDICATED Urine Opiates Screen NEGATIVE Ur Oxycodone Screen NEGATIVE Urine Methadone Screen NEGATIVE Ur Propoxyphene Screen NEGATIVE Ur Barbiturates Screen NEGATIVE Ur Tricyclics Screen NEGATIVE Ur Phencyclidine Scrn NEGATIVE Ur Amphetamine Screen NEGATIVE U Methamphetamines Scrn NEGATIVE U Benzodiazepines Scrn POSITIVE H Urine Cocaine Screen NEGATIVE U Cannabinoids Screen POSITIVE H Ethyl Alcohol < 5.0 PD MEDICAL DECISION MAKING - ED course Complexity details: reviewed old records, reviewed results, re-evaluated patient, considered differential, d/w patient Departure - Departure Disposition: 01 Home, Self Care Clinical Impression: Hypokalemia, Renal insufficiency Alcohol withdrawal Qualifiers: Complication of substance-induced condition: uncomplicated Qualified Code(s): F10.230 - Alcohol dependence with withdrawal, uncomplicated Condition: Good Instructions: ED Withdrawal Alcohol, ED Potassium Deficiency Follow-Up: [facility] [Provider Group] [facility] [Provider Group] Prescriptions: cloNIDine [Catapres] 0.1 mg PO BID #14 tablet LORazepam [Ativan] 1 mg PO TID PRN #20 tablet PRN Reason: Alcohol Withdrawal LORazepam [Ativan] 1 mg PO TID PRN #20 tablet PRN Reason: Anxiety Ondansetron Odt [Zofran] 4 mg TL Q6H PRN #14 tablet PRN Reason: Nausea / Vomiting Ondansetron Odt [Zofran] 4 mg TL Q6H PRN #10 tablet PRN Reason: Nausea / Vomiting Potassium Phosphate,Monobasic [K-Phos Original] 500 mg PO BID #14 tablet.aylin Comments: Avoid alcohol and use the medication to help with withdrawal. Follow-up with detox as planned on Wednesday. Stay well-hydrated. Add a potassium and phosphorus supplements for the next week. Discharge Date/Time: 05/22/18 13:44
[2018-05-22] MEDS ORDERED: FOLIC ACID INJ 1 MG, THIAMINE INJ 100 MG, MAGNESIUM SULFATE 2 GM, MULTIVITAMIN 10 ML in... IV STA ×5 (05:43)
[2018-05-22] MEDS ORDERED: SODIUM CHLORIDE 0.9% 1,000 ML IV STA (05:43)
[2018-05-22] MEDS ORDERED: THIAMINE 100 MG/1 ML 2 ML MDV ONE (05:57)
[2018-05-22 06:16] LABS: BASOPHILS # (AUTO) 0.1 10^3/uL (0.0-0.1); BASOPHILS % (AUTO) 0.6 %; HGB - HEMOGLOBIN 15.7 g/dL (14.0-18.0); LYMPHOCYTES # (AUTO) 0.7 10^3/uL (1.5-3.5); LYMPHOCYTES % (AUTO) 3.6 %; MEAN CORPUSCULAR HEMOGLOBIN 32.9 pg (27.0-31.0); MEAN CORPUSCULAR HGB CONC 34.5 g/dL (32.0-36.0); MEAN CORPUSCULAR VOLUME 95.4 fL (80.0-94.0); MONOCYTES # (AUTO) 1.1 10^3/uL (0.0-1.0); MONOCYTES % (AUTO) 6.2 %; NEUTROPHILS # (AUTO) 16.3 10^3/uL (1.5-6.6); NEUTROPHILS % (AUTO) 89.6 %; PLT - PLATELET COUNT 236 10^3/uL (130-450); RED BLOOD COUNT 4.77 10^6/uL (4.70-6.10); RED CELL DISTRIBUTION WIDTH 13.1 % (12.0-15.0); WHITE BLOOD COUNT 18.2 x10^3/uL (4.8-10.8)
[2018-05-22 06:29] LABS: ALBUMIN 4.2 g/dL (3.2-5.5); ALBUMIN/GLOBULIN RATIO 1.1 (1.0-2.2); ALKALINE PHOSPHATASE 116 IU/L (42-121); ALT ALANINE AMINOTRANSFERASE 26 IU/L (10-60); AST ASPARTATE AMINOTRANSFERASE 31 IU/L (10-42); BILIRUBIN,TOTAL 2.1 mg/dL (0.2-1.0); BUN - BLOOD UREA NITROGEN 23 mg/dL (6-20); CALCIUM 9.1 mg/dL (8.5-10.3); CARBON DIOXIDE - CO2 29 mmol/L (21-32); CHLORIDE 95 mmol/L (101-111); CREATININE 1.3 mg/dL (0.6-1.2); GFR - MDRD 58 (>89); GLUCOSE 174 mg/dL (70-100); LIPASE 23 U/L (22-51); MAGNESIUM 2.2 mg/dL (1.7-2.8); PHOSPHORUS 1.6 mg/dL (2.5-4.6); SODIUM 139 mmol/L (135-145); TOTAL PROTEIN 8.1 g/dL (6.7-8.2)
[2018-05-22] MEDS ORDERED: POTASSIUM PHOSPHATE 15 MMOL in SODIUM CHLORIDE 0.9% 250 ML IV STA (07:17)
[2018-05-22] MEDS ORDERED: LORazepam 2 MG/ML VIAL IVP STA (07:24)
[2018-05-22] MEDS ORDERED: ONDANSETRON 4 MG/2 ML VIAL IVP STA ×2 (07:35→09:48)
[2018-05-22] MEDS ORDERED: MAG HYDROX/AL HYDROX/SIMETH 30 ML UDC PO STA (09:48)
[2018-05-22] MEDS ORDERED: FAMOTIDINE 20 MG/2 ML VIAL IVP STA (09:48)
[2018-05-22] MEDS ORDERED: LIDOCAINE-EPINEPH-TETRACAINE 3 ML SYRINGE TOP STA (09:48)
[2018-05-22] MEDS ORDERED: LIDOCAINE VISCOUS 2% 15 ML UDC MM STA (09:53)
[2018-05-22 11:01] LABS: MUDS CUTOFF CONCENTRATIONS CUTOFF CONC BELOW:
[2018-05-22 11:05] LABS: BILIRUBIN,URINE NEGATIVE (NEGATIVE); GLUCOSE, URINE (UA) NEGATIVE (NEGATIVE); KETONES,URINE (UA) 40 mg/dL (NEGATIVE); LEUKOCYTE ESTERASE, URINE NEGATIVE (NEGATIVE); NITRITE,URINE NEGATIVE (NEGATIVE); OCCULT BLOOD,URINE NEGATIVE (NEGATIVE); PH,URINE 7.5 PH (5.0-7.5); PROTEIN,URINE TRACE mg/dL (NEGATIVE); UROBILINOGEN,URINE 0.2 (NORMAL) E.U./dL (NORMAL)
[2018-05-22 11:15] LABS: AMPHETAMINE SCREEN,URINE NEGATIVE (NEGATIVE); BENZODIAZEPINES SCREEN, URINE POSITIVE (NEGATIVE); CLARITY,URINE CLEAR (CLEAR); COCAINE SCREEN URINE NEGATIVE (NEGATIVE); METHADONE SCREEN, URINE NEGATIVE (NEGATIVE); METHAMPHETAMINES SCREEN, URINE NEGATIVE (NEGATIVE); OPIATE SCREEN, URINE NEGATIVE (NEGATIVE); OXYCODONE SCREEN, URINE NEGATIVE (NEGATIVE); PROPOXYPHENE SCREEN, URINE NEGATIVE (NEGATIVE); TRICYCLIC ANTIDEPRESSANT,URINE NEGATIVE (NEGATIVE)
--- NOTE | 2018-05-22 13:32 | ED Physician Documentation ---
ED Addendum - Addendum Addendum: He has remained stable here with a low amount of her and some hypertension but minimal tachycardia. He is not having much shakiness. He has not had any further vomiting. He is taking some oral liquids and snack. He does seem like he will be able to be discharged. Social work talked with him and there were no availability of detox beds today. There is a plan for him to talk with a detox and rehab tomorrow. 05/22/18 13:31
[2018-05-22 13:36] VITALS: BP 160/98
== END 2018-05-22 13:44 | disposition home or self-care (01) ==
LOC: EDUNIT# → ED 05:12
DX: F10.230 Alcohol dependence with withdrawal, uncomplicated (principal); E87.6 Hypokalemia; N28.9 Disorder of kidney and ureter, unspecified; I10 Essential (primary) hypertension
CPT/HCPCS: 36415; 80053; 80320; 81003; 83690; 83735; 84100; 85025; 96365; 96367; 96375; 96376; 99284; A9270; J2060; J3411; 80306; 81001; 87086

== ENCOUNTER 2018-10-02 08:30 | Emergency (ER) | payer OTHER ==
[2018-10-02] MEDS ORDERED: FOLIC ACID INJ 1 MG, THIAMINE INJ 100 MG, MAGNESIUM SULFATE 2 GM, MULTIVITAMIN 10 ML in... IV STA ×5 (09:02)
[2018-10-02] MEDS ORDERED: LORazepam 2 MG/ML VIAL IVP STA (10:02)
[2018-10-02] MEDS ORDERED: ONDANSETRON 4 MG/2 ML VIAL IVP STA (10:02)
--- NOTE | 2018-10-02 10:03 | ED Physician Documentation ---
History of Present Illness - Stated complaint Stated Complaint: WEAKNESS/VOMITING - Chief complaint Chief Complaint: General - History obtained from History obtained from: Patient - History of Present Illness Timing: How many days ago (3) - Additonal information Additional information: 53-year-old alcoholic male consuming 1/5/day of vodka for the past 2 months has stopped drinking 3 days ago. He has had vomiting shaking and feels poorly. Review of Systems Constitutional: reports: Fatigue. denies: Fever Eyes: denies: Decreased vision Ears: denies: Ear pain Nose: denies: Rhinorrhea / runny nose, Congestion Throat: denies: Sore throat Cardiac: denies: Chest pain / pressure, Palpitations, Pedal edema, Calf pain Respiratory: denies: Dyspnea, Cough GI: reports: Abdominal Pain, Nausea, Vomiting : denies: Dysuria, Frequency Skin: denies: Rash Musculoskeletal: denies: Neck pain, Back pain, Extremity pain Neurologic: reports: Generalized weakness, Other (shaking). denies: Focal weakness, Numbness, Seizure, Confused PD PAST MEDICAL HISTORY - Past Medical History Past Medical History: Yes Cardiovascular: Hypertension Respiratory: None Endocrine/Autoimmune: None GI: None : None HEENT: None Psych: Post traumatic stress disorder Musculoskeletal: None Derm: None - Past Surgical History Past Surgical History: Yes - Present Medications Home Medications: Ambulatory Orders Medication Instructions Recorded Confirmed RX: Lisinopril 10 mg PO DAILY 07/21/16 07/23/16 RX: QUEtiapine [SEROquel] 100 mg PO BID 07/21/16 07/23/16 RX: Sertraline [Zoloft] 150 mg PO DAILY 07/21/16 07/23/16 RX: Prazosin HCl 4 mg PO QPM 07/23/16 07/23/16 RX: traZODone [Desyrel] 50 - 100 mg PO QPM PRN 07/23/16 07/23/16 RX: Gabapentin 1,200 mg PO TID #60 capsule 07/24/16 RX: Multivitamin [Theragran] 1 tab PO DAILYWM tablet 07/24/16 RX: Sucralfate [Carafate] 1 gm PO BID #30 ml 07/24/16 RX: Thiamine [Vitamin B-1] 100 mg PO DAILY tablet 07/24/16 Ondansetron Odt [Zofran] 4 mg TL Q6H PRN #14 tablet 05/22/18 RX: Potassium Phosphate,Monobasic 500 mg PO BID #14 tablet.aylin 05/22/18 [K-Phos Original] RX: cloNIDine [Catapres] 0.1 mg PO BID #14 tablet 05/22/18 Lorazepam [Ativan] 1 - 2 mg PO Q6HR PRN #30 tablet 10/02/18 Promethazine [Phenergan] 25 mg PO Q6H PRN #10 tab 10/02/18 - Allergies Allergies/Adverse Reactions: Allergies Allergy/AdvReac Type Severity Reaction Status Date / Time No Known Drug Allergies Allergy Verified 10/02/18 08:37 - Social History Does the pt smoke?: No Smoking Status: Never smoker Does the pt drink ETOH?: Yes Does the pt have substance abuse?: Yes PD ED PE NORMAL - Vitals Vital signs reviewed: Yes (tachy and hypertensive ) - General General: Alert and oriented X 3, Well developed/nourished, Other (The patient is diaphoretic, shaky and is vomiting at the bedside. ) - HEENT HEENT: Atraumatic, PERRL, EOMI - Neck Neck: Supple, no meningeal sign - Cardiac Cardiac: No murmur, Other (tachy ) - Respiratory Respiratory: No respiratory distress, Clear bilaterally - Abdomen Abdomen: Soft, Other (mild epigastric tenderness) - Back Back: No CVA TTP, No spinal TTP - Derm Derm: Normal color, Warm and dry, No rash - Extremities Extremities: No deformity, No edema - Neuro Neuro: Alert and oriented X 3, No motor deficit, No sensory deficit, Normal speech Eye Opening: Spontaneous Motor: Obeys Commands Verbal: Oriented GCS Score: 15 - Psych Psych: Other (mood is withdrawn and the affect is flattened) Results - Vitals Vitals: Vital Signs - 24 hr 10/02/18 10/02/18 10/02/18 08:35 10:14 12:41 Temperature 36.9 C Heart Rate 120 H 97 88 Respiratory 18 16 Rate Blood Pressure 158/95 H 132/98 H 156/77 H O2 Saturation 100 99 100 10/02/18 10/02/18 14:00 15:30 Temperature Heart Rate 87 82 Respiratory 99 H 22 Rate Blood Pressure 159/89 H 155/88 H O2 Saturation 99 Oxygen O2 Source Room air - EKG (time done) 1142 Rate: Rate (enter#) (87) Intervals: Prolonged QT Ischemia: ST depression (minimal ) Compare to prior EKG: Changed from prior EKG (SPT 07-21-2016 QT interval has increased and the baseline artifact has resolved. ) Computer interpretation: Agree with computer - Labs Labs: Laboratory Tests 10/02/18 10/02/18 10/02/18 10:25 10:25 10:25 WBC 13.2 H RBC 4.63 L Hgb 14.6 Hct 40.2 L MCV 86.8 MCH 31.5 H MCHC 36.3 H RDW 11.9 L Plt Count 178 MPV 9.7 Neut # (Auto) 10.6 H Lymph # (Auto) 1.0 L [place] # (Auto) 1.5 H Eos # (Auto) 0.0 Baso # (Auto) 0.0 Absolute Nucleated RBC 0.00 Nucleated RBC % 0.0 PT 13.1 H INR 1.2 Sodium 132 L Potassium 2.2 L* Chloride 79 L* Carbon Dioxide 29 Anion Gap 24.0 H BUN 17 Creatinine 0.9 Estimated GFR (MDRD) 88 L Glucose 127 H Calcium 8.8 Total Bilirubin 3.1 H AST 43 H ALT 22 Alkaline Phosphatase 73 Total Protein 7.5 Albumin 4.0 Globulin 3.5 Albumin/Globulin Ratio 1.1 Lipase 23 10/02/18 17:25 WBC RBC Hgb Hct MCV MCH MCHC RDW Plt Count MPV Neut # (Auto) Lymph # (Auto) [place] # (Auto) Eos # (Auto) Baso # (Auto) Absolute Nucleated RBC Nucleated RBC % PT INR Sodium 131 L Potassium 2.7 L Chloride 85 L Carbon Dioxide 28 Anion Gap 18.0 H BUN 14 Creatinine 0.9 Estimated GFR (MDRD) 88 L Glucose 101 H Calcium 8.0 L Total Bilirubin AST ALT Alkaline Phosphatase Total Protein Albumin Globulin Albumin/Globulin Ratio Lipase PD MEDICAL DECISION MAKING - ED course Complexity details: reviewed old records, reviewed results, re-evaluated patient, considered differential, d/w patient ED course: 53-year-old alcoholic male going through alcohol withdrawal is actively vomiting and has a critically low potassium. He is administered both oral and IV potassium as well as IV saline, Ativan, Zofran and after his electrocardiogram was done with a prolonged QT interval this was switched to Phenergan. He is administered Mylanta and Protonix as well with complaints of a sour stomach. He will need continued replacement of potassium intravenously. He has vomited 3 times since coming in to the ED. At 1335 the hospitalist is consulted for admission and requests further resuscitation before admission. The patient received further IV fluid, IV potssium oral potassium and phenergan. He felt improved and requested to go home to follow up with the [facility] for services. Departure - Departure Disposition: 01 Home, Self Care Clinical Impression: Dehydration, Alcohol withdrawal, Hypokalemia Condition: Fair Instructions: ED Withdrawal Alcohol, ED Dehydration, ED Potassium Deficiency Follow-Up: Kevin Garduno MD [Physician No Access] - Your, doctor at the [facility] [Other] Prescriptions: Lorazepam [Ativan] 1 - 2 mg PO Q6HR PRN #30 tablet PRN Reason: withdrawal symptoms Promethazine [Phenergan] 25 mg PO Q6H PRN #10 tab PRN Reason: Nausea / Vomiting Discharge Date/Time: 10/02/18 17:58
[2018-10-02 10:39] LABS: BASOPHILS % (AUTO) 0.2 %; EOSINOPHILS % (AUTO) 0.1 %; HGB - HEMOGLOBIN 14.6 g/dL (14.0-18.0); LYMPHOCYTES % (AUTO) 7.4 %; MEAN CORPUSCULAR HEMOGLOBIN 31.5 pg (27.0-31.0); MEAN CORPUSCULAR HGB CONC 36.3 g/dL (32.0-36.0); MEAN CORPUSCULAR VOLUME 86.8 fL (80.0-94.0); MEAN PLATELET VOLUME 9.7 fL (7.4-11.4); MONOCYTES # (AUTO) 1.5 10^3/uL (0.0-1.0); MONOCYTES % (AUTO) 11.2 %; NEUTROPHILS # (AUTO) 10.6 10^3/uL (1.5-6.6); NEUTROPHILS % (AUTO) 80.5 %; PLT - PLATELET COUNT 178 10^3/uL (130-450); RED BLOOD COUNT 4.63 10^6/uL (4.70-6.10); RED CELL DISTRIBUTION WIDTH 11.9 % (12.0-15.0); WHITE BLOOD COUNT 13.2 x10^3/uL (4.8-10.8)
[2018-10-02 10:45] LABS: INR 1.2 (0.8-1.2); PT - PROTHROMBIN TIME 13.1 secs (9.9-12.6)
[2018-10-02 11:05] LABS: ALBUMIN/GLOBULIN RATIO 1.1 (1.0-2.2); BILIRUBIN,TOTAL 3.1 mg/dL (0.2-1.0); CALCIUM 8.8 mg/dL (8.5-10.3); CREATININE 0.9 mg/dL (0.6-1.2); TOTAL PROTEIN 7.5 g/dL (6.7-8.2)
[2018-10-02] MEDS ORDERED: POTASSIUM CHLORIDE 20 MEQ TABLET PO STA (11:29)
[2018-10-02] MEDS ORDERED: SODIUM CHLORIDE 0.9% 1,000 ML IV ONE (11:29)
[2018-10-02] MEDS ORDERED: POTASSIUM CHLOR 10 MEQ/100 ML 10 MEQ/100 ML BAG IV ONE ×2 (11:33→15:58)
[2018-10-02] MEDS ORDERED: PROMETHAZINE INJ 25 MG in SODIUM CHLORIDE 0.9% 50 ML IV STA (11:50)
[2018-10-02] MEDS ORDERED: POTASSIUM CHLOR 10 MEQ/100 ML 10 MEQ/100 ML BAG IV SCH (12:00)
[2018-10-02] MEDS ORDERED: PANTOPRAZOLE 40 MG VIAL IVP STA (13:20)
[2018-10-02] MEDS ORDERED: MAG HYDROX/AL HYDROX/SIMETH 30 ML UDC PO STA (13:20)
[2018-10-02 16:06] VITALS: BP 155/88
[2018-10-02 17:41] LABS: CREATININE 0.9 mg/dL (0.6-1.2)
== END 2018-10-02 17:58 | disposition home or self-care (01) ==
LOC: ED 08:30
DX: F10.239 Alcohol dependence with withdrawal, unspecified (principal); E86.0 Dehydration; E87.6 Hypokalemia; I45.81 Long QT syndrome; I10 Essential (primary) hypertension
CPT/HCPCS: 36415; 80048; 80053; 83690; 85025; 85610; 93005; 96365; 96366; 96367; 96375; 99283; 99284; A9270; J2060; J3411; J7040

== ENCOUNTER 2018-11-28 11:27 | Emergency (ER) | payer OTHER ==
--- NOTE | 2018-11-28 13:06 | ED Physician Documentation ---
PD HPI ABD PAIN - Stated complaint Stated Complaint: VOMITING/ABD PX - Chief complaint Chief Complaint: Abd Pain - History obtained from History obtained from: Patient - History of Present Illness Timing - onset: How many days ago (2-3 days of nausea and vomiting.) Timing - duration: Days (He typically gets naltrexone IM once monthly at the [facility]. He was unable to get therefore an appointment and so had a desire for alcohol. He had a drink for 3 days due to that and started getting nausea and vomiting so has been unable to drink for the last 1-1/2 days. He is now feeling nauseous with vomiting shaky and feels he is in withdrawal. He has had similar in the past. His next appointment with the [facility] is not till the but he can call his provider for sooner appointment hopefully.) Timing - details: Gradual onset, Still present Quality: Aching, Indigestion, Pain Location: Epigastric Radiation: Upper back Improved by: No: Eating, Vomiting Worsened by: Eating Associated symptoms: Nausea, Vomiting. No: Fever, Diarrhea, Dysuria Similar symptoms before: Diagnosis (alcoholic gastritis and alcohol withdrawal) Recently seen: Not recently seen Review of Systems Constitutional: denies: Fever, Chills Nose: denies: Rhinorrhea / runny nose, Congestion Throat: denies: Sore throat Cardiac: denies: Chest pain / pressure Respiratory: denies: Cough GI: reports: Abdominal Pain, Nausea, Vomiting. denies: Abdominal Swelling, Diarrhea, Hematemesis : denies: Dysuria, Frequency Neurologic: reports: Generalized weakness. denies: Focal weakness, Numbness, Altered mental status, Headache PD PAST MEDICAL HISTORY - Past Medical History Cardiovascular: Hypertension Respiratory: None Endocrine/Autoimmune: None GI: None : None HEENT: None Psych: Post traumatic stress disorder Musculoskeletal: None Derm: None - Past Surgical History Past Surgical History: Yes - Present Medications Home Medications: Ambulatory Orders Medication Instructions Recorded Confirmed Lisinopril 10 mg PO DAILY 07/21/16 07/23/16 QUEtiapine [SEROquel] 100 mg PO BID 07/21/16 07/23/16 Sertraline [Zoloft] 150 mg PO DAILY 07/21/16 07/23/16 Prazosin HCl 4 mg PO QPM 07/23/16 07/23/16 traZODone [Desyrel] 50 - 100 mg PO QPM PRN 07/23/16 07/23/16 Gabapentin 1,200 mg PO TID #60 capsule 07/24/16 Multivitamin [Theragran] 1 tab PO DAILYWM tablet 07/24/16 Sucralfate [Carafate] 1 gm PO BID #30 ml 07/24/16 Thiamine [Vitamin B-1] 100 mg PO DAILY tablet 07/24/16 Ondansetron Odt [Zofran] 4 mg TL Q6H PRN #14 tablet 05/22/18 Potassium Phosphate,Monobasic 500 mg PO BID #14 tablet.aylin 05/22/18 [K-Phos Original] cloNIDine [Catapres] 0.1 mg PO BID #14 tablet 05/22/18 Lorazepam [Ativan] 1 - 2 mg PO Q6HR PRN #30 tablet 10/02/18 Promethazine [Phenergan] 25 mg PO Q6H PRN #10 tab 10/02/18 Famotidine 20 mg PO DAILY #30 tablet 11/28/18 Ondansetron Odt [Zofran] 4 mg TL Q6H PRN #20 tablet 11/28/18 Potassium Chloride 10 meq PO DAILY #15 tablet.er 11/28/18 chlordiazePOXIDE [Librium] 50 mg PO Q6H PRN #25 capsule 11/28/18 - Allergies Allergies/Adverse Reactions: Allergies Allergy/AdvReac Type Severity Reaction Status Date / Time No Known Drug Allergies Allergy Verified 11/28/18 11:36 - Social History Does the pt smoke?: No Smoking Status: Never smoker Does the pt drink ETOH?: Yes Does the pt have substance abuse?: Yes PD ED PE NORMAL - Vitals Vital signs reviewed: Yes - General General: Alert and oriented X 3, Well developed/nourished, Other (appears uncomfortable with active vomiting. ) - HEENT HEENT: PERRL (nonicteric), Pharynx benign - Neck Neck: Supple, no meningeal sign, No adenopathy - Cardiac Cardiac: RRR, No murmur - Respiratory Respiratory: Clear bilaterally - Abdomen Abdomen: Normal bowel sounds, No organomegaly, Other (tender epigastric area with some guarding, no percussion tenderness. ) - Back Back: No CVA TTP - Derm Derm: Normal color, Warm and dry - Extremities Extremities: No tenderness to palpate, Normal ROM s pain, No edema, No calf tenderness / cord - Neuro Neuro: Alert and oriented X 3, No motor deficit, Normal speech, Other (shakiy arms c/w withdrawal) Results - Vitals Vitals: Vital Signs - 24 hr 11/28/18 11/28/18 11/28/18 11:32 13:17 14:01 Temperature 37.3 C Heart Rate 97 94 89 Respiratory 18 18 18 Rate Blood Pressure 181/92 H 157/98 H 153/91 H O2 Saturation 100 100 100 11/28/18 11/28/18 11/28/18 14:30 15:11 15:43 Temperature Heart Rate 95 94 94 Respiratory 18 18 16 Rate Blood Pressure 142/80 H 143/80 H 140/81 H O2 Saturation 100 99 100 11/28/18 11/28/18 16:15 16:48 Temperature 36.9 C 153 C H Heart Rate 96 93 Respiratory 18 18 Rate Blood Pressure 136/78 H 153/91 H O2 Saturation 100 98 Oxygen O2 Source Room air - Labs Labs: Laboratory Tests 11/28/18 11/28/18 13:46 13:46 WBC 14.4 H RBC 4.77 Hgb 14.6 Hct 43.9 MCV 92.0 MCH 30.6 MCHC 33.3 RDW 13.2 Plt Count 211 MPV 10.0 Neut # (Auto) 12.6 H Lymph # (Auto) 0.8 L [place] # (Auto) 0.8 Eos # (Auto) 0.0 Baso # (Auto) 0.0 Absolute Nucleated RBC 0.00 Nucleated RBC % 0.0 Sodium 136 Potassium 3.0 L Chloride 91 L Carbon Dioxide 23 Anion Gap 22.0 H BUN 19 Creatinine 0.9 Estimated GFR (MDRD) 88 L Glucose 141 H Calcium 10.0 Magnesium 1.7 Total Bilirubin 2.3 H AST 27 ALT 16 Alkaline Phosphatase 78 Total Protein 8.8 H Albumin 4.8 Globulin 4.0 Albumin/Globulin Ratio 1.2 Lipase 25 Ethyl Alcohol < 5.0 PD MEDICAL DECISION MAKING - ED course Complexity details: re-evaluated patient (improved with IV fluids, antiemetics, and Ativan for withdrawal. Able to eat and drink now. Feeling able to head home with Rx meds. ), considered differential (seems like alcohol withdrawal and gastritis. ), d/w patient Departure - Departure Disposition: 01 Home, Self Care Clinical Impression: Alcoholic gastritis Qualifiers: Chronicity: acute Gastritis bleeding: without bleeding Qualified Code(s): K29.20 - Alcoholic gastritis without bleeding Alcohol withdrawal Qualifiers: Complication of substance-induced condition: uncomplicated Qualified Code(s): F10.230 - Alcohol dependence with withdrawal, uncomplicated Condition: Stable Record reviewed to determine appropriate education?: Yes Instructions: ED Withdrawal Alcohol Follow-Up: [facility] [Provider Group] Prescriptions: chlordiazePOXIDE [Librium] 50 mg PO Q6H PRN #25 capsule PRN Reason: Alcohol Withdrawal Famotidine 20 mg PO DAILY #30 tablet Ondansetron Odt [Zofran] 4 mg TL Q6H PRN #20 tablet PRN Reason: Nausea / Vomiting Potassium Chloride 10 meq PO DAILY #15 tablet.er Comments: Stay well-hydrated. Craig food initially and progress as tolerated. Your stomach will no doubt be irritated so take famotidine acid reducing medicine daily for the next couple of weeks or so. Librium every 6 hours if needed for alcohol withdrawal. Ondansetron if needed for nausea. Continue usual medications otherwise. Add potassium supplement daily for a week or so. Follow-up with the [facility] system this week if possible, call for sooner appointment. Otherwise follow-up on the as planned. Return to the ER as needed. Avoid alcohol. Discharge Date/Time: 11/28/18 16:55
[2018-11-28] MEDS ORDERED: SODIUM CHLORIDE 0.9% 1,000 ML IV ONE ×2 (13:26)
[2018-11-28] MEDS ORDERED: FAMOTIDINE 20 MG/2 ML VIAL IVP STA (13:26)
[2018-11-28] MEDS ORDERED: KETOROLAC 15 MG/ML VIAL IVP STA (13:26)
[2018-11-28] MEDS ORDERED: LORazepam 2 MG/ML VIAL IVP STA ×2 (13:26→14:33)
[2018-11-28 13:55] LABS: BASOPHILS % (AUTO) 0.1 %; EOSINOPHILS % (AUTO) 0.2 %; HGB - HEMOGLOBIN 14.6 g/dL (14.0-18.0); LYMPHOCYTES # (AUTO) 0.8 10^3/uL (1.5-3.5); LYMPHOCYTES % (AUTO) 5.6 %; MEAN CORPUSCULAR HEMOGLOBIN 30.6 pg (27.0-31.0); MEAN CORPUSCULAR HGB CONC 33.3 g/dL (32.0-36.0); MONOCYTES # (AUTO) 0.8 10^3/uL (0.0-1.0); MONOCYTES % (AUTO) 5.8 %; NEUTROPHILS # (AUTO) 12.6 10^3/uL (1.5-6.6); NEUTROPHILS % (AUTO) 87.7 %; PLT - PLATELET COUNT 211 10^3/uL (130-450); RED BLOOD COUNT 4.77 10^6/uL (4.70-6.10); RED CELL DISTRIBUTION WIDTH 13.2 % (12.0-15.0); WHITE BLOOD COUNT 14.4 x10^3/uL (4.8-10.8)
[2018-11-28 14:03] LABS: ALBUMIN 4.8 g/dL (3.2-5.5); ALBUMIN/GLOBULIN RATIO 1.2 (1.0-2.2); ALKALINE PHOSPHATASE 78 IU/L (42-121); ALT ALANINE AMINOTRANSFERASE 16 IU/L (10-60); AST ASPARTATE AMINOTRANSFERASE 27 IU/L (10-42); BILIRUBIN,TOTAL 2.3 mg/dL (0.2-1.0); BUN - BLOOD UREA NITROGEN 19 mg/dL (6-20); CARBON DIOXIDE - CO2 23 mmol/L (21-32); CHLORIDE 91 mmol/L (101-111); CREATININE 0.9 mg/dL (0.6-1.2); GFR - MDRD 88 (>89); GLUCOSE 141 mg/dL (70-100); LIPASE 25 U/L (22-51); MAGNESIUM 1.7 mg/dL (1.7-2.8); SODIUM 136 mmol/L (135-145); TOTAL PROTEIN 8.8 g/dL (6.7-8.2)
[2018-11-28] MEDS ORDERED: cloNIDine 0.1 MG TABLET PO STA (14:33)
[2018-11-28] MEDS ORDERED: POTASSIUM CHLOR 10 MEQ/100 ML 10 MEQ/100 ML BAG IV ONE (14:33)
[2018-11-28] MEDS ORDERED: LORazepam 1 MG TABLET PO STA (16:21)
[2018-11-28] MEDS ORDERED: ONDANSETRON 4 MG/2 ML VIAL IVP STA (16:21)
[2018-11-28 16:50] VITALS: BP 153/91
== END 2018-11-28 16:55 | disposition home or self-care (01) ==
LOC: ED 11:27
DX: F10.230 Alcohol dependence with withdrawal, uncomplicated (principal); K29.20 Alcoholic gastritis without bleeding; I10 Essential (primary) hypertension
CPT/HCPCS: 36415; 80053; 80320; 83690; 83735; 85025; 96361; 96365; 96375; 96376; 99283; 99284; A9270; J2060; J8499

== ENCOUNTER 2019-01-13 11:24 | Emergency (ER) | payer OTHER ==
--- NOTE | 2019-01-13 12:47 | ED Physician Documentation ---
History of Present Illness - Stated complaint Stated Complaint: VOMITING - Chief complaint Chief Complaint: Abd Pain - Additonal information Additional information: This is a 53-year-old male with a history of alcoholism and hypertension who presents with vomiting. Patient Is a heavy drinker he typically drinks a fifth of alcohol daily. He started having vomiting on Wednesday and stopped drinking on that day. He has had recurrent vomiting since that time. This has happened before when he stopped drinking. He did not have any abdominal pain when this started, but as he has vomited more more he has had epigastric abdominal pain. He has not noticed any blood in his vomit. He denies having a history of pancreatitis. He has generalized moderate discomfort across his upper abdomen. He denies fever or chills. He has never had any seizures with his withdrawal. He denies SI. Review of Systems Constitutional: denies: Fever Cardiac: denies: Chest pain / pressure GI: reports: Abdominal Pain, Nausea, Vomiting Skin: denies: Rash Neurologic: denies: Focal weakness PD PAST MEDICAL HISTORY - Past Medical History Cardiovascular: Hypertension Respiratory: None Endocrine/Autoimmune: None GI: None : None HEENT: None Psych: Post traumatic stress disorder Musculoskeletal: None Derm: None - Past Surgical History Past Surgical History: Yes - Present Medications Home Medications: Ambulatory Orders Medication Instructions Recorded Confirmed Lisinopril 10 mg PO DAILY 07/21/16 07/23/16 QUEtiapine [SEROquel] 100 mg PO BID 07/21/16 07/23/16 Sertraline [Zoloft] 150 mg PO DAILY 07/21/16 07/23/16 Prazosin HCl 4 mg PO QPM 07/23/16 07/23/16 traZODone [Desyrel] 50 - 100 mg PO QPM PRN 07/23/16 07/23/16 Gabapentin 1,200 mg PO TID #60 capsule 07/24/16 Multivitamin [Theragran] 1 tab PO DAILYWM tablet 07/24/16 Sucralfate [Carafate] 1 gm PO BID #30 ml 07/24/16 Thiamine [Vitamin B-1] 100 mg PO DAILY tablet 07/24/16 Ondansetron Odt [Zofran] 4 mg TL Q6H PRN #14 tablet 05/22/18 Potassium Phosphate,Monobasic 500 mg PO BID #14 tablet.aylni 05/22/18 [K-Phos Original] cloNIDine [Catapres] 0.1 mg PO BID #14 tablet 05/22/18 Lorazepam [Ativan] 1 - 2 mg PO Q6HR PRN #30 tablet 10/02/18 Promethazine [Phenergan] 25 mg PO Q6H PRN #10 tab 10/02/18 Famotidine 20 mg PO DAILY #30 tablet 11/28/18 Ondansetron Odt [Zofran] 4 mg TL Q6H PRN #20 tablet 11/28/18 Potassium Chloride 10 meq PO DAILY #15 tablet.er 11/28/18 chlordiazePOXIDE [Librium] 50 mg PO Q6H PRN #25 capsule 11/28/18 Famotidine [Acid Controller] 20 mg PO DAILY #14 tablet 01/13/19 Ondansetron Odt [Zofran] 4 mg TL Q6H PRN #10 tablet 01/13/19 chlordiazePOXIDE [Librium] 25 mg PO Q6H PRN #12 capsule 01/13/19 - Allergies Allergies/Adverse Reactions: Allergies Allergy/AdvReac Type Severity Reaction Status Date / Time No Known Drug Allergies Allergy Verified 11/28/18 11:36 - Social History Does the pt smoke?: No Smoking Status: Never smoker Does the pt drink ETOH?: Yes Does the pt have substance abuse?: Yes PD ED PE NORMAL - Vitals Vital signs reviewed: Yes - General General: Alert and oriented X 3, Other (Uncomfortable but nontoxic-appearing) - HEENT HEENT: PERRL - Neck Neck: Supple, no meningeal sign - Cardiac Cardiac: No murmur, Other (Tachycardic, regular rhythm) - Respiratory Respiratory: No respiratory distress, Clear bilaterally - Abdomen Abdomen: Other (Hepatomegaly present. Tenderness in epigastrium and left upper quadrant, to lesser extent some mild tenderness in the right upper quadrant. No lower abdominal tenderness. No guarding) - Derm Derm: Warm and dry - Extremities Extremities: No deformity - Neuro Neuro: Alert and oriented X 3, hand hose cutter 2-12 intact, No motor deficit, No sensory deficit, Normal speech - Psych Psych: Normal mood, Normal affect Results - Vitals Vitals: Vital Signs - 24 hr 01/13/19 01/13/19 15:01 16:00 Heart Rate 74 79 Respiratory 14 Rate Blood Pressure 167/85 H 144/78 H O2 Saturation 98 100 Oxygen O2 Source Room air - Labs Labs: Laboratory Tests 01/13/19 01/13/19 01/13/19 12:55 12:55 14:51 WBC 16.4 H RBC 4.91 Hgb 15.6 Hct 44.6 MCV 90.8 MCH 31.8 H MCHC 35.0 RDW 13.2 Plt Count 228 MPV 10.1 Neut # (Auto) 14.4 H Lymph # (Auto) 0.9 L [place] # (Auto) 1.0 Eos # (Auto) 0.0 Baso # (Auto) 0.0 Absolute Nucleated RBC 0.00 Nucleated RBC % 0.0 Sodium 137 Potassium 3.1 L Chloride 89 L Carbon Dioxide 27 Anion Gap 21.0 H BUN 15 Creatinine 1.0 Estimated GFR (MDRD) 78 L Glucose 169 H Lactic Acid 2.3 H Calcium 9.7 Total Bilirubin 1.8 H AST 33 ALT 18 Alkaline Phosphatase 97 Total Protein 8.3 H Albumin 4.4 Globulin 3.9 Albumin/Globulin Ratio 1.1 Lipase 24 Ethyl Alcohol < 5.0 PD MEDICAL DECISION MAKING - ED course Complexity details: considered differential (Gastritis, pancreatitis, gastroenteritis, alcohol withdrawal, electrolyte abnormality.) ED course: Pt is mildly tachycardic and hypertensive on arrival. He was given ativan, zofran, famotidine and fluids and had very good improvement in his symptoms. He does appear to be in mild alcohol withdrawal. Labs show leukocytosis, mild hypokalemia, elevated bilirubin that is similar/improved compared to past values, mildly elevated lactate consistent with dehydration. On repeat examination pt is feeling much better, is no longer tachycardic. His abdomen is now completely benign, with no tenderness whatsoever. He is able to tolerate PO. I doubt acute abdominal pathology. Tachycardia resolved. I do think alcoholic gastritis combined with alcohol withdrawal is likely. Pt would like to go home, I gave him librium and another 500 cc of lactated ringers. He has been observed close to 5 hours in the ED with continued improvement and appears well enough for outpatient care. I provided a librium taper after in-depth discussion with him about the risks of combining it with alcohol and he is a dament that he will not drink alcohol. I also discussed strict return precautions and close PCP follow up. Pt agrees and was discharged home. Departure - Departure Disposition: 01 Home, Self Care Clinical Impression: Alcoholic gastritis Qualifiers: Chronicity: acute Gastritis bleeding: without bleeding Qualified Code(s): K29.20 - Alcoholic gastritis without bleeding Condition: Good Instructions: ED Withdrawal Alcohol, ED Gastritis Follow-Up: Your,PCP [Other] - Within 3 Days Prescriptions: chlordiazePOXIDE [Librium] 25 mg PO Q6H PRN #12 capsule PRN Reason: Alcohol Withdrawal Famotidine [Acid Controller] 20 mg PO DAILY #14 tablet Ondansetron Odt [Zofran] 4 mg TL Q6H PRN #10 tablet PRN Reason: Nausea / Vomiting Comments: You were seen today for vomiting. You appear to have some inflammation of your stomach as well as alcohol withdrawal. Please take the acid blocking medication as well as the nausea medication to help control your symptoms. For alcohol withdrawal you may take the Librium as prescribed, it is very important you do not combine this with alcohol, as the combination can be deadly. If you have persistent vomiting despite this treatment, or if you develop severe withdrawal symptoms despite the Librium, or if you have increasing abdominal pain, return to the emergency department immediately. Please follow-up closely with your primary care provider on your symptoms and alcohol use. Discharge Date/Time: 01/13/19 16:40
[2019-01-13] MEDS ORDERED: LACTATED RINGERS 1,000 ML IV STA (12:54)
[2019-01-13] MEDS ORDERED: ONDANSETRON 4 MG/2 ML VIAL IVP STA ×2 (12:54→15:20)
[2019-01-13] MEDS ORDERED: LORazepam 2 MG/ML VIAL IVP STA (12:54)
[2019-01-13 13:12] LABS: BASOPHILS % (AUTO) 0.2 %; EOSINOPHILS % (AUTO) 0.1 %; HGB - HEMOGLOBIN 15.6 g/dL (14.0-18.0); LYMPHOCYTES # (AUTO) 0.9 10^3/uL (1.5-3.5); LYMPHOCYTES % (AUTO) 5.4 %; MEAN CORPUSCULAR HEMOGLOBIN 31.8 pg (27.0-31.0); MEAN CORPUSCULAR VOLUME 90.8 fL (80.0-94.0); MEAN PLATELET VOLUME 10.1 fL (7.4-11.4); MONOCYTES % (AUTO) 5.9 %; NEUTROPHILS # (AUTO) 14.4 10^3/uL (1.5-6.6); NEUTROPHILS % (AUTO) 87.7 %; PLT - PLATELET COUNT 228 10^3/uL (130-450); RED BLOOD COUNT 4.91 10^6/uL (4.70-6.10); RED CELL DISTRIBUTION WIDTH 13.2 % (12.0-15.0); WHITE BLOOD COUNT 16.4 x10^3/uL (4.8-10.8)
[2019-01-13] MEDS ORDERED: FAMOTIDINE 20 MG/2 ML VIAL IVP STA (13:17)
[2019-01-13 14:02] LABS: ALBUMIN 4.4 g/dL (3.2-5.5); ALBUMIN/GLOBULIN RATIO 1.1 (1.0-2.2); ALKALINE PHOSPHATASE 97 IU/L (42-121); ALT ALANINE AMINOTRANSFERASE 18 IU/L (10-60); AST ASPARTATE AMINOTRANSFERASE 33 IU/L (10-42); BILIRUBIN,TOTAL 1.8 mg/dL (0.2-1.0); BUN - BLOOD UREA NITROGEN 15 mg/dL (6-20); CALCIUM 9.7 mg/dL (8.5-10.3); CARBON DIOXIDE - CO2 27 mmol/L (21-32); CHLORIDE 89 mmol/L (101-111); GFR - MDRD 78 (>89); GLUCOSE 169 mg/dL (70-100); LIPASE 24 U/L (22-51); SODIUM 137 mmol/L (135-145); TOTAL PROTEIN 8.3 g/dL (6.7-8.2)
[2019-01-13] MEDS ORDERED: chlordiazePOXIDE 25 MG CAPSULE PO STA (15:20)
[2019-01-13] MEDS ORDERED: LACTATED RINGERS 500 ML IV STA (15:21)
[2019-01-13 16:12] VITALS: BP 144/78
== END 2019-01-13 16:40 | disposition home or self-care (01) ==
LOC: ED 11:24
DX: K29.20 Alcoholic gastritis without bleeding (principal); F10.239 Alcohol dependence with withdrawal, unspecified; E87.6 Hypokalemia; I10 Essential (primary) hypertension
CPT/HCPCS: 36415; 80053; 80320; 83605; 83690; 85025; 96361; 96374; 96375; 99283; 99284; A9270; J2060; J7120

== ENCOUNTER 2021-03-22 07:19 | Emergency (ER) | payer OTHER ==
[2021-03-22 08:11] LABS: BASOPHILS % (AUTO) 0.1 %; EOSINOPHILS # (AUTO) 0.1 10^3/uL (0.0-0.7); EOSINOPHILS % (AUTO) 0.9 %; HGB - HEMOGLOBIN 17.3 g/dL (14.0-18.0); LYMPHOCYTES # (AUTO) 0.7 10^3/uL (1.5-3.5); LYMPHOCYTES % (AUTO) 6.9 %; MEAN CORPUSCULAR HEMOGLOBIN 34.1 pg (27.0-31.0); MEAN CORPUSCULAR HGB CONC 36.8 g/dL (32.0-36.0); MEAN CORPUSCULAR VOLUME 92.5 fL (80.0-94.0); MEAN PLATELET VOLUME 10.9 fL (7.4-11.4); MONOCYTES # (AUTO) 0.8 10^3/uL (0.0-1.0); MONOCYTES % (AUTO) 7.8 %; NEUTROPHILS # (AUTO) 8.5 10^3/uL (1.5-6.6); PLT - PLATELET COUNT 90 10^3/uL (130-450); RED BLOOD COUNT 5.08 10^6/uL (4.70-6.10); RED CELL DISTRIBUTION WIDTH 11.9 % (12.0-15.0); WHITE BLOOD COUNT 10.1 x10^3/uL (4.8-10.8)
--- NOTE | 2021-03-22 08:13 | XRAY Report ---
PROCEDURE: Chest 1 View X-Ray INDICATIONS: Chest Pain TECHNIQUE: One view of the chest was acquired. COMPARISON: None FINDINGS: Surgical changes and devices: Left-sided dual-chamber pacemaker present.. Lungs and pleura: No pleural effusions or pneumothorax. Lungs are clear. Mediastinum: Mediastinal contours appear normal. Heart size is normal. Bones and chest wall: No suspicious bony lesions. Overlying soft tissues appear unremarkable. IMPRESSION: No acute cardiopulmonary findings Reviewed by: Bo Jones MD on 03/22/2021 7:12 AM [facility] Approved by: Bo Jones MD on 03/22/2021 7:12 AM [facility] Station ID: [id number]
[2021-03-22] MEDS ORDERED: LORazepam 2 MG/ML VIAL IVP STA (08:29)
[2021-03-22] MEDS ORDERED: THIAMINE INJ 100 MG, MAGNESIUM SULFATE 2 GM, MULTIVITAMIN 10 ML, FOLIC ACID INJ 1 MG in... IV ONE ×10 (08:29→08:59)
[2021-03-22] MEDS ORDERED: SODIUM CHLORIDE 0.9% 1,000 ML IV STA (08:29)
[2021-03-22 08:37] LABS: ALBUMIN 4.8 g/dL (3.2-5.5); ALBUMIN/GLOBULIN RATIO 1.4 (1.0-2.2); BILIRUBIN,TOTAL 3.7 mg/dL (0.2-1.0); CALCIUM 9.5 mg/dL (8.5-10.3); CREATININE 0.8 mg/dL (0.6-1.2); TOTAL PROTEIN 8.3 g/dL (6.7-8.2)
--- NOTE | 2021-03-22 08:37 | ED Physician Documentation ---
PD HPI ABD PAIN - Stated complaint Stated Complaint: VOMITING/CHEST PX - Chief complaint Chief Complaint: General - Additional information Additional information: Is a 56-year-old male presenting to the emergency department with nausea, vomit ing, chest and abdominal pain. Past medical significant for hypertension and longstanding history of alcohol abuse. Reports quit drinking Wednesday, however prior to that had been drinking 1/5 of vodka daily. Reports intermittent drinking for the entirety of his adult life. Denies any history of seizure or delirium associated with alcohol withdrawal however does report he is needed to be hospitalized for severe electrolyte derangement, specifically mentioning an episode in which his potassium was 2.0. Reports that whenever he quits drinking he has similar symptoms of chest, abdominal pain and nausea vomiting. Reports he uses occasional edible marijuana products but denies any other illicit substance use. States that he wishes to feel better but that he is not interested in either detox or rehab at this time. Review of Systems Ten Systems: 10 systems reviewed and negative Constitutional: denies: Fever Eyes: denies: Loss of vision Ears: denies: Loss of hearing Nose: denies: Rhinorrhea / runny nose Throat: denies: Dental pain / toothache Cardiac: reports: Chest pain / pressure Respiratory: denies: Dyspnea GI: reports: Abdominal Pain, Nausea, Vomiting, Diarrhea : denies: Dysuria Musculoskeletal: denies: Neck pain Psychiatric: denies: Suicidal, Homicidal PD PAST MEDICAL HISTORY - Past Medical History Past Medical History: Yes Cardiovascular: Hypertension, Arrhythmia Respiratory: None Neuro: Peripheral neuropathy Endocrine/Autoimmune: None GI: None, Pancreatitis : None HEENT: None Psych: Post traumatic stress disorder Musculoskeletal: None Derm: None - Past Surgical History Past Surgical History: Yes Cardiovascular: Pacemaker - Present Medications Home Medications: Ambulatory Orders Medication Instructions Recorded Confirmed lisinopriL [Lisinopril] 10 mg PO DAILY 07/21/16 03/22/21 Gabapentin 1,200 mg PO TID #60 capsule 07/24/16 03/22/21 Multivitamin [Theragran] 1 tab PO DAILYWM tablet 07/24/16 03/22/21 Magnesium Oxide [Mag Ox] 400 mg PO DAILY #30 tablet 03/22/21 Pantoprazole [Protonix] 40 mg PO DAILY #30 tablet 03/22/21 Potassium Chloride 20 meq PO DAILY #30 tablet 03/22/21 Scopolamine [Transderm-Scop] 1 each TD DAILY #3 patch 03/22/21 cloNIDine [Catapres] 0.1 mg PO DAILY 03/22/21 03/22/21 - Allergies Allergies/Adverse Reactions: Allergies Allergy/AdvReac Type Severity Reaction Status Date / Time No Known Drug Allergies Allergy Verified 03/22/21 07:30 - Social History Does the pt smoke?: No Smoking Status: Never smoker Does the pt drink ETOH?: Yes Does the pt have substance abuse?: Yes Substance Use and Type: Marijuana, CBD oil / Products - Immunizations Immunizations are current?: No Immunizations: TDAP >10years/unknown PD ED PE NORMAL - General General: Alert and oriented X 3 - HEENT HEENT: Atraumatic - Neck Neck: Supple, no meningeal sign - Cardiac Cardiac: RRR - Respiratory Respiratory: No respiratory distress - Abdomen Abdomen: Normal bowel sounds - Male Male : Deferred - Rectal Rectal: Deferred - Back Back: No CVA TTP - Derm Derm: Normal color - Extremities Extremities: No deformity - Neuro Neuro: Alert and oriented X 3 Results - Vitals Vitals: Vital Signs - 24 hr 03/22/21 03/22/21 03/22/21 07:30 08:03 10:01 Temperature 36.4 C L Heart Rate 92 76 78 Respiratory 20 12 20 Rate Blood Pressure 151/94 H 158/106 H 163/90 H O2 Saturation 99 100 99 03/22/21 03/22/21 12:27 13:38 Temperature 37.1 C Heart Rate 63 62 Respiratory 17 19 Rate Blood Pressure 184/103 H 174/97 H O2 Saturation 100 99 Oxygen O2 Source Room air - EKG (time done) 0746 Rate: Rate (enter#) (84) Rhythm: NSR [place]: Normal Intervals: Normal IN, Prolonged QT QRS: Normal Ischemia: Normal ST segments Compare to prior EKG: Changed from prior EKG (Qtc is improved from most previous 10/02/2018) 1144 Rate: Rate (enter#) (78) Rhythm: NSR [place]: Normal Intervals: Normal IN, Prolonged QT QRS: Normal Ischemia: Normal ST segments. No: Hyperacute T waves, T wave inversion Other comments: Other comments Compare to prior EKG: Changed from prior EKG (Qtc interval has shortened) Computer interpretation: Disagree with computer (NSR, not Atrial-paced) - Labs Labs: Laboratory Tests 03/22/21 03/22/21 03/22/21 07:55 07:55 07:55 WBC 10.1 RBC 5.08 Hgb 17.3 Hct 47.0 MCV 92.5 MCH 34.1 H MCHC 36.8 H RDW 11.9 L Plt Count 90 L MPV 10.9 Neut # (Auto) 8.5 H Lymph # (Auto) 0.7 L [place] # (Auto) 0.8 Eos # (Auto) 0.1 Baso # (Auto) 0.0 Absolute Nucleated RBC 0.00 Nucleated RBC % 0.0 Sodium 127 L Potassium 2.3 L* Chloride 77 L* Carbon Dioxide 31 Anion Gap 19.0 H BUN 19 Creatinine 0.8 Estimated GFR (MDRD) 100 Glucose 150 H Calcium 9.5 Magnesium Total Bilirubin 3.7 H AST 32 ALT 27 Alkaline Phosphatase 83 Troponin I High Sens 6.4 Total Protein 8.3 H Albumin 4.8 Globulin 3.5 Albumin/Globulin Ratio 1.4 Lipase 33 Nasal Adenovirus (PCR) Nasal B. parapertussis DNA (PCR) Nasal Coronavir 229E PCR Nasal Coronavir HKU1 PCR Nasal Coronavir NL63 PCR Nasal Coronavir OC43 PCR Nasal Enterovir/Rhinovir PCR Nasal Influenza B PCR Nasal Influenza A PCR Nasal Parainfluen 1 PCR Nasal Parainfluen 2 PCR Nasal Parainfluen 3 PCR Nasal Parainfluen 4 PCR Nasal RSV (PCR) Nasal B.pertussis DNA PCR Nasal C.pneumoniae (PCR) [place]wasi Human Metapneumo PCR Nasal M.pneumoniae (PCR) Nasal SARS-CoV-2 (PCR) Urine Opiates Screen Ur Oxycodone Screen Urine Methadone Screen Ur Propoxyphene Screen Ur Barbiturates Screen Ur Tricyclics Screen Ur Phencyclidine Scrn Ur Amphetamine Screen U Methamphetamines Scrn U Benzodiazepines Scrn Urine Cocaine Screen U Cannabinoids Screen Ethyl Alcohol 03/22/21 03/22/21 03/22/21 07:55 09:50 11:58 WBC RBC Hgb Hct MCV MCH MCHC RDW Plt Count MPV Neut # (Auto) Lymph # (Auto) [place] # (Auto) Eos # (Auto) Baso # (Auto) Absolute Nucleated RBC Nucleated RBC % Sodium 128 L Potassium 2.8 L Chloride 83 L Carbon Dioxide 30 Anion Gap 15.0 H BUN 14 Creatinine 0.5 L Estimated GFR (MDRD) 172 Glucose 94 Calcium 8.4 L Magnesium 2.1 Total Bilirubin AST ALT Alkaline Phosphatase Troponin I High Sens Total Protein Albumin Globulin Albumin/Globulin Ratio Lipase Nasal Adenovirus (PCR) NOT DETECTED Nasal B. parapertussis DNA (PCR) NOT DETECTED Nasal Coronavir 229E PCR NOT DETECTED Nasal Coronavir HKU1 PCR NOT DETECTED Nasal Coronavir NL63 PCR NOT DETECTED Nasal Coronavir OC43 PCR NOT DETECTED Nasal Enterovir/Rhinovir PCR NOT DETECTED Nasal Influenza B PCR NOT DETECTED Nasal Influenza A PCR NOT DETECTED Nasal Parainfluen 1 PCR NOT DETECTED Nasal Parainfluen 2 PCR NOT DETECTED Nasal Parainfluen 3 PCR NOT DETECTED Nasal Parainfluen 4 PCR NOT DETECTED Nasal RSV (PCR) NOT DETECTED Nasal B.pertussis DNA PCR NOT DETECTED Nasal C.pneumoniae (PCR) NOT DETECTED Kwasi Human Metapneumo PCR NOT DETECTED Nasal M.pneumoniae (PCR) NOT DETECTED Nasal SARS-CoV-2 (PCR) NOT DETECTED Urine Opiates Screen Ur Oxycodone Screen Urine Methadone Screen Ur Propoxyphene Screen Ur Barbiturates Screen Ur Tricyclics Screen Ur Phencyclidine Scrn Ur Amphetamine Screen U Methamphetamines Scrn U Benzodiazepines Scrn Urine Cocaine Screen U Cannabinoids Screen Ethyl Alcohol < 5.0 03/22/21 12:30 WBC RBC Hgb Hct MCV MCH MCHC RDW Plt Count MPV Neut # (Auto) Lymph # (Auto) [place] # (Auto) Eos # (Auto) Baso # (Auto) Absolute Nucleated RBC Nucleated RBC % Sodium Potassium Chloride Carbon Dioxide Anion Gap BUN Creatinine Estimated GFR (MDRD) Glucose Calcium Magnesium Total Bilirubin AST ALT Alkaline Phosphatase Troponin I High Sens Total Protein Albumin Globulin Albumin/Globulin Ratio Lipase Nasal Adenovirus (PCR) Nasal B. parapertussis DNA (PCR) Nasal Coronavir 229E PCR Nasal Coronavir HKU1 PCR Nasal Coronavir NL63 PCR Nasal Coronavir OC43 PCR Nasal Enterovir/Rhinovir PCR Nasal Influenza B PCR Nasal Influenza A PCR Nasal Parainfluen 1 PCR Nasal Parainfluen 2 PCR Nasal Parainfluen 3 PCR Nasal Parainfluen 4 PCR Nasal RSV (PCR) Nasal B.pertussis DNA PCR Nasal C.pneumoniae (PCR) [place]wasi Human Metapneumo PCR Nasal M.pneumoniae (PCR) Nasal SARS-CoV-2 (PCR) Urine Opiates Screen POSITIVE H Ur Oxycodone Screen NEGATIVE Urine Methadone Screen NEGATIVE Ur Propoxyphene Screen NEGATIVE Ur Barbiturates Screen NEGATIVE Ur Tricyclics Screen NEGATIVE Ur Phencyclidine Scrn NEGATIVE Ur Amphetamine Screen NEGATIVE U Methamphetamines Scrn NEGATIVE U Benzodiazepines Scrn NEGATIVE Urine Cocaine Screen NEGATIVE U Cannabinoids Screen POSITIVE H Ethyl Alcohol PD MEDICAL DECISION MAKING - ED course Complexity details: reviewed old records, reviewed results, re-evaluated patient, considered differential, d/w patient ED course: 6-year-old male with longstanding history of alcohol abuse presenting to the emergency department with a chief complaint, nausea, vomiting, chest and abdominal pain. Afebrile, hemodynamically stable on arrival to the emergency department. Endorsed for nausea but no pot during his stay was there any active vomiting. EKG as outlined above was negative for indications of acute cardiac ischemia or dysrhythmia however did demonstrate a prolongation in QTC at 591 ms. Is actually slightly improved from the patient's previous 659 ms 10/02/2018. He was given Ativan, Benadryl for management of his nausea. Of labs demonstrated a mild hyponatremia and hypokalemia potassium 2.3. Given potassium, magnesium, banana bag for electrolyte repletion. Monitored in the emergency department for several hours. Repeat EKG demonstrated significant improvement with QTC now measured at 530 ms. Patient was offered evaluation for detox/rehab from his chronic alcohol abuse however he reported that he is not interested in this. After approximately 6 hours in the emergency department he reported that he felt significantly better and wished to be discharged. He was tolerating p.o. intake at that time. I will discharge with Protonix, for likely alcohol induced gastritis as well as ongoing supplementation for magnesium and potassium. The patient was encouraged to follow-up carefully with his primary care doctor or return to the emergency department for new or worsening symptoms. Departure - Departure Disposition: 01 Home, Self Care Clinical Impression: Alcoholic gastritis, Hypokalemia Instructions: Hypokalemia Dc, Diet High Potassium Dc, ED Gastritis, Potassium Supplements Follow-Up: Martin Hubbard MD [Credentialed Staff Provider] - Prescriptions: Magnesium Oxide [Mag Ox] 400 mg PO DAILY #30 tablet Potassium Chloride 20 meq PO DAILY #30 tablet Pantoprazole [Protonix] 40 mg PO DAILY #30 tablet Scopolamine [Transderm-Scop] 1 each TD DAILY #3 patch Comments: Thank you for allowing us to care for you today at [facility]. [facility] Please fill up your prescriptions as soon as possible. Please take them as directed. I have attached contact information for a local area physician you can follow-up with to establish yourself with primary care. Otherwise I recommend staying well-hydrated at home. An excellent strategy is to drink water, Gatorade or not artificially sweetened fruit juices. If it anytime you develop any new or worsening symptoms please not hesitate to return. Discharge Date/Time: 03/22/21 14:27
[2021-03-22 08:39] LABS: POTASSIUM 2.3 mmol/L (3.5-5.0)
[2021-03-22] MEDS ORDERED: MAGNESIUM SULFATE 2 GRAM 2 GM/50 ML BAG IV ONE (08:40)
[2021-03-22] MEDS ORDERED: PANTOPRAZOLE 40 MG VIAL IVP STA (08:41)
[2021-03-22] MEDS ORDERED: POTASSIUM CHLOR 10 MEQ/100 ML 10 MEQ/100 ML BAG IV ONE (08:41)
[2021-03-22 09:00] LABS: ETOH - ETHANOL < 5.0 mg/dL; MAGNESIUM 2.1 mg/dL (1.7-2.8)
[2021-03-22] MEDS ORDERED: MORPHINE 2 MG/ML CARPUJECT IVP STA (10:32)
[2021-03-22] MEDS ORDERED: diphenhydrAMINE INJ 50 MG/ML VIAL IM STA (10:32)
[2021-03-22] MEDS ORDERED: diphenhydrAMINE INJ 50 MG/ML VIAL IVP STA (10:37)
[2021-03-22 10:48] LABS: B. PARAPERTUSSIS- RESP PCR PAN NOT DETECTED; B. PERTUSSIS- RESP PCR PANEL NOT DETECTED; C. PNEUMONIAE- RESP PCR PANEL NOT DETECTED; CORONAVIRUS 229E-RESP PCR NOT DETECTED; CORONAVIRUS HKU1-RESP PCR NOT DETECTED; CORONAVIRUS NL63-RESP PCR NOT DETECTED; CORONAVIRUS OC43-RESP PCR NOT DETECTED; HUMAN METAPNEUMOVIRUS NOT DETECTED; INFLUENZA A- RESP PCR PANEL NOT DETECTED; INFLUENZA B - RESP PCR PANEL NOT DETECTED; M. PNEUMONIAE- RESP PCR PANEL NOT DETECTED; PARAINFLUENZA VIRUS 1 NOT DETECTED; PARAINFLUENZA VIRUS 2 NOT DETECTED; PARAINFLUENZA VIRUS 3 NOT DETECTED; PARAINFLUENZA VIRUS 4 NOT DETECTED; RHINOVIRUS/ENTEROVIRUS NOT DETECTED; RSV- RESP PCR PANEL NOT DETECTED; SARS-CoV-2 -RESP PCR PANEL NOT DETECTED
[2021-03-22] MEDS ORDERED: GI COCKTAIL 120 ML BOTTLE PO PRN (10:49)
[2021-03-22] MEDS ORDERED: lisinopriL 5 MG TABLET PO STA (12:17)
[2021-03-22 12:19] LABS: CALCIUM 8.4 mg/dL (8.5-10.3); CREATININE 0.5 mg/dL (0.6-1.2); POTASSIUM 2.8 mmol/L (3.5-5.0)
[2021-03-22 12:33] LABS: MUDS CUTOFF CONCENTRATIONS CUTOFF CONC BELOW:
[2021-03-22 12:47] LABS: AMPHETAMINE SCREEN,URINE NEGATIVE (NEGATIVE); BARBITURATE SCREEN,UR NEGATIVE (NEGATIVE); BENZODIAZEPINES SCREEN, URINE NEGATIVE (NEGATIVE); COCAINE SCREEN URINE NEGATIVE (NEGATIVE); METHADONE SCREEN, URINE NEGATIVE (NEGATIVE); METHAMPHETAMINES SCREEN, URINE NEGATIVE (NEGATIVE); OPIATE SCREEN, URINE POSITIVE (NEGATIVE); THC CANNABINOID SCREEN, URINE POSITIVE (NEGATIVE); TRICYCLIC ANTIDEPRESSANT,URINE NEGATIVE (NEGATIVE)
[2021-03-22 12:48] LABS: OXYCODONE SCREEN, URINE NEGATIVE (NEGATIVE); PROPOXYPHENE SCREEN, URINE NEGATIVE (NEGATIVE)
[2021-03-22 13:39] VITALS: BP 174/97
[2021-03-22] MEDS ORDERED: SCOPOLAMINE PATCH TOP SCH (15:00)
== END 2021-03-22 14:27 | disposition home or self-care (01) ==
LOC: ED 07:19
DX: F10.188 Alcohol abuse with other alcohol-induced disorder (principal); K29.20 Alcoholic gastritis without bleeding; I10 Essential (primary) hypertension; E87.6 Hypokalemia; Z20.822 Contact with and (suspected) exposure to COVID-19
CPT/HCPCS: 0202U; 36415; 71045; 80048; 80053; 80306; 80320; 83690; 83735; 84484; 85025; 93005; 96365; 96366; 96368; 96375; 99283; 99285; A9270; J1200; J2060; J3411; J3490

== ENCOUNTER 2023-06-12 15:39 | Emergency (ER) | payer OTHER ==
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
[2023-06-12] MEDS: KETOROLAC 30 MG/ML VIAL IM STA (16:35)
[2023-06-12] MEDS: CYCLOBENZAPRINE 10 MG TABLET PO STA (16:35)
[2023-06-12] MEDS: oxyCODONE 5 MG TABLET PO STA (17:07)
[2023-06-12 17:14] VITALS: BP 171/91; O2SAT 100
== END 2023-06-12 17:19 | disposition home or self-care (01) ==
LOC: ED 15:39
DX: S30.0XXA Contusion of lower back and pelvis, initial encounter (principal); W18.39XA Other fall on same level, initial encounter; Y93.E1 Activity, personal bathing and showering; Y92.002 Bathroom of unspecified non-institutional (private) residence as the place of occurrence of the external cause; M54.42 Lumbago with sciatica, left side
CPT/HCPCS: 96372; 99283; A9270